=== PATIENT | female | born 1970 | race Caucasian/White ===

== ENCOUNTER 2019-11-09 08:21 | Outpatient (RCR) | payer OTHER, SELFPAY | END 2020-03-20 08:31 | disposition other institution (70) | LOC: HO.PTWFD 08:21 | PROVIDERS: PCP Family Medicine; Visit Provider Orthopaedic Surgery Hand Surgery | DX: M79.671 Pain in right foot (principal) | CPT/HCPCS: 97035; 97110; 97140 ==

== ENCOUNTER 2019-11-21 11:25 | Outpatient (REF) | payer OTHER, SELFPAY ==
[2019-11-21 14:13] LABS: Syphilis Screen Nonreactive (Nonreactive)
[2019-11-21 14:18] LABS: Alanine Aminotransferase 17 U/L (0-31); Albumin Level 4.5 g/dL (3.5-5.0); Alkaline Phosphatase 57 U/L (39-117); Anion Gap 12 (12-20); Aspartate Amino Transferase 14 U/L (5-31); Bilirubin Total 0.5 mg/dL (0.0-1.0); Blood Urea Nitrogen 14 mg/dL (9-16); Carbon Dioxide 29 mmol/L (22-29); Chloride 105 mmol/L (96-108); Cholesterol 147 mg/dL; Estimated Glomerular Filt Rate > 60; Glucose Fasting 91 mg/dL (60-99); HDL Cholesterol 49 mg/dL; LDL Cholesterol Calculated 76 mg/dl; Potassium 4.8 mmol/l (3.3-5.1); Sodium 141 mmol/L (135-145); Total Protein 7.6 g/dL (6.5-8.0); Triglycerides 112 mg/dL
[2019-11-21 14:40] LABS: TSH reflex Free T4 0.01 mIU/mL (0.32-4.0)
[2019-11-21 15:12] LABS: Free T4 (Free Thyroxine) 1.77 ng/dL (0.71-1.85)
[2019-11-21 16:04] LABS: CT PCR NOT DETECTED (Not Detect.); NG PCR NOT DETECTED (Not Detect.)
[2019-11-23 08:38] LABS: HIV AB/AG Nonreactive (Nonreactive); HIV Num 1 0.08 S/CO (0.00-0.99)
== END 2019-11-21 11:26 | disposition home or self-care (01) ==
LOC: HO.WFDLDS 11:25
PROVIDERS: PCP Family Medicine; Visit Provider Family Medicine
DX: Z00.00 Encounter for general adult medical examination without abnormal findings (principal); Z11.4 Encounter for screening for human immunodeficiency virus [HIV]; Z11.3 Encounter for screening for infections with a predominantly sexual mode of transmission; E03.9 Hypothyroidism, unspecified; F41.9 Anxiety disorder, unspecified; K21.9 Gastro-esophageal reflux disease without esophagitis
CPT/HCPCS: 80053; 80061; 84439; 84443; 86780; 87389; 87491; 87591

== ENCOUNTER 2019-11-28 10:51 | Outpatient (REF) | payer OTHER, SELFPAY | END 2019-11-28 10:52 | disposition home or self-care (01) | LOC: HO.LNP 10:51 | PROVIDERS: Visit Provider Hospitalist | DX: Z20.828 Contact with and (suspected) exposure to other viral communicable diseases (principal) | CPT/HCPCS: 87635 ==

== ENCOUNTER 2019-11-30 11:36 | Outpatient (REF) | payer OTHER, SELFPAY ==
[2019-11-30 11:56] LABS: COVID-19 Test Negative (Negative)
== END 2019-11-30 11:37 | disposition home or self-care (01) ==
LOC: HO.LAB 11:36
PROVIDERS: PCP Family Medicine; Visit Provider Internal Medicine
DX: Z20.828 Contact with and (suspected) exposure to other viral communicable diseases (principal)
CPT/HCPCS: 87635

== ENCOUNTER 2020-01-14 12:06 | Outpatient (REF) | payer OTHER, SELFPAY ==
--- NOTE | 2020-01-14 | MM_ITS ---
EXAMINATION: MM SCREENING DIGITAL BREAST TOMOSYNTHESIS, BILATERAL CLINICAL INFORMATION: Screening. Asymptomatic. The lifetime risk of breast cancer based on the Tyrer-Cuzick Model is 6.7%. COMPARISON: Mammography: September 30, 2017 and studies dating back to October 27, 2010 TECHNIQUE: Digital breast tomosynthesis is performed in both the craniocaudal and mediolateral oblique views along with computer-aided detection (CAD). Synthesized 2D images are generated from the tomosynthesis. FINDINGS: The breasts are extremely dense, which lowers the sensitivity of mammography (ACR BI-RADS breast composition Category d). There are no significant masses, abnormal calcifications, or other abnormalities. MM/MM tomosynthesis screening BI IMPRESSION: There are no significant changes from prior study. ASSESSMENT: BI-RADS 1: Negative RECOMMENDATION: Routine annual mammography screening. This patient's information was entered into a reminder system with a target due date for their next mammogram.
== END 2020-01-14 12:07 | disposition home or self-care (01) ==
LOC: HO.MAMMO 12:06
PROVIDERS: PCP Family Medicine; Visit Provider Family Medicine
DX: Z12.31 Encounter for screening mammogram for malignant neoplasm of breast (principal)
CPT/HCPCS: 77063; 77067

== ENCOUNTER 2020-02-18 16:54 | Outpatient (REF) | payer OTHER, SELFPAY | END 2020-02-18 16:55 | disposition home or self-care (01) | LOC: HO.EMPCOV 16:54 | PROVIDERS: Visit Provider Internal Medicine | DX: Z13.89 Encounter for screening for other disorder (principal) ==

== ENCOUNTER 2020-02-25 09:42 | Outpatient (REF) | payer OTHER, SELFPAY ==
[2020-02-25 10:49] LABS: MANUAL DIFF FLAG NO
[2020-02-25 10:52] LABS: Basophils Percent Auto 0.5 % (0-2); Eosinophils Absolute Auto 0.2 X10*3/uL (0.0-0.4); Eosinophils Percent Auto 2.7 % (0-4); Hematocrit 42.4 % (37-47); Hemoglobin 13.6 g/dl (12.0-16.0); Imm Gran Abs Auto 0.02 X10*3/uL (0.00-0.03); Imm Gran Pct Auto 0.3 % (0.0-0.4); Lymphocytes Percent Auto 31.2 % (20-40); Mean Corpuscular HGB Conc 32.1 g/dl (31.0-35.0); Mean Corpuscular Hemoglobin 30.8 pg (27.0-33.0); Mean Corpuscular Volume 96.1 fL (80-98); Mean Platelet Volume 9.3 fL (9.4-12.3); Monocytes Absolute Auto 0.4 X10*3/uL (0.1-1.2); Monocytes Percent Auto 6.7 % (2-11); Neutrophils Absolute Auto 3.7 X10*3/uL (2.0-8.3); Neutrophils Percent Auto 58.6 % (45-73); Platelet Count 371 X10*3/uL (160-400); Red Blood Count 4.41 X10*6/uL (4.20-5.50); Red Cell Distribution Width 12.8 % (11.0-16.0); White Blood Count 6.3 X10*3/uL (4.8-10.8)
[2020-02-25 11:20] LABS: Alanine Aminotransferase 14 U/L (0-31); Albumin Level 4.3 g/dL (3.5-5.0); Alkaline Phosphatase 52 U/L (39-117); Anion Gap 13 (12-20); Aspartate Amino Transferase 12 U/L (5-31); Bilirubin Total < 0.2 mg/dL (0.0-1.0); Blood Urea Nitrogen 15 mg/dL (9-16); Calcium 8.1 mg/dL (8.4-10.2); Carbon Dioxide 27 mmol/L (22-29); Chloride 105 mmol/L (96-108); Estimated Glomerular Filt Rate > 60; Glucose Random 94 mg/dL (60-115); Potassium 4.5 mmol/l (3.3-5.1); Sodium 140 mmol/L (135-145); Total Protein 7.4 g/dL (6.5-8.0); Uric Acid 4.5 mg/dL (2.4-5.7)
[2020-02-25 11:40] LABS: Free T4 (Free Thyroxine) 1.28 ng/dL (0.71-1.85); Thyroid Stimulating Hormone 0.05 uIU/mL (0.32-4.0)
[2020-02-25 11:45] LABS: Erythrocyte Sedimentation Rate 7 MM/HR (0-20)
[2020-02-29 07:07] LABS: Thyroglobulin Antibody <1 IU/mL (<=1); Thyroglobulin Level 4.2 ng/mL
== END 2020-02-25 09:43 | disposition home or self-care (01) ==
LOC: HO.WFDLDS 09:42
PROVIDERS: Visit Provider Family Medicine
DX: C73 Malignant neoplasm of thyroid gland (principal); M25.474 Effusion, right foot
CPT/HCPCS: 36415; 80053; 84432; 84439; 84443; 84550; 85025; 85652; 86800

== ENCOUNTER 2020-03-01 08:47 | Outpatient (REF) | payer OTHER, SELFPAY ==
[2020-03-01 09:12] LABS: COVID-19 Test Negative (Negative)
== END 2020-03-01 08:48 | disposition home or self-care (01) ==
LOC: HO.EMPCOV 08:47
PROVIDERS: Visit Provider Internal Medicine
DX: Z20.822 Contact with and (suspected) exposure to COVID-19 (principal)
CPT/HCPCS: 36415; 87635; C9803

== ENCOUNTER 2020-03-06 11:12 | Outpatient (REF) | payer OTHER, SELFPAY ==
[2020-03-06 11:28] LABS: COVID-19 Test Negative (Negative)
== END 2020-03-06 11:13 | disposition home or self-care (01) ==
LOC: HO.EMPCOV 11:12
PROVIDERS: Visit Provider Internal Medicine
DX: Z20.822 Contact with and (suspected) exposure to COVID-19 (principal)
CPT/HCPCS: 36415; 87635; C9803

== ENCOUNTER 2020-11-03 18:25 | Outpatient (REF) | payer OTHER, SELFPAY | END 2020-11-03 18:26 | disposition home or self-care (01) | LOC: HO.LNP 18:25 | PROVIDERS: Visit Provider Family Medicine | DX: Z20.822 Contact with and (suspected) exposure to COVID-19 (principal); B34.9 Viral infection, unspecified | CPT/HCPCS: U0003; U0005 ==

== ENCOUNTER 2021-05-01 09:03 | Outpatient (REF) | payer OTHER, SELFPAY ==
--- NOTE | ~2021-05-01 | MM_ITS ---
EXAMINATION: MM SCREENING DIGITAL BREAST TOMOSYNTHESIS, BILATERAL CLINICAL INFORMATION: Screening. Asymptomatic. The lifetime risk of breast cancer based on the Tyrer-Cuzick Model is 7%. COMPARISON: Mammography: 01/14/2020, 09/30/2017, 09/21/2017 TECHNIQUE: Digital breast tomosynthesis is performed in both the craniocaudal and mediolateral oblique views along with computer-aided detection (CAD). Synthesized 2D images are generated from the tomosynthesis. FINDINGS: The breasts are heterogeneously dense, which may obscure small masses (ACR BI-RADS breast composition Category c). There are no significant masses, abnormal calcifications, or other abnormalities. Parenchymal pattern is similar to prior studies. There is no developing density or architectural abnormality. The axilla and skin contours are unremarkable. No significant changes. MM/MM tomosynthesis screening BI IMPRESSION: No mammographic evidence of malignancy. ASSESSMENT: BI-RADS 1: Negative RECOMMENDATION: Routine annual mammography screening. This patient's information was entered into a reminder system with a target due date for their next mammogram.
== END 2021-05-01 09:04 | disposition home or self-care (01) ==
LOC: HO.MAMMO 09:03
PROVIDERS: PCP Family Medicine; Visit Provider Family Medicine
DX: Z12.31 Encounter for screening mammogram for malignant neoplasm of breast (principal)
CPT/HCPCS: 77063; 77067

== ENCOUNTER 2021-06-05 08:46 | Outpatient (REF) | payer OTHER, SELFPAY ==
[2021-06-05 11:34] LABS: MANUAL DIFF FLAG NO
[2021-06-05 11:41] LABS: Basophils Absolute Auto 0.1 X10*3/uL (0.0-0.2); Basophils Percent Auto 0.7 % (0-2); Eosinophils Absolute Auto 0.3 X10*3/uL (0.0-0.4); Eosinophils Percent Auto 3.3 % (0-4); Hematocrit 43.7 % (37.0-47.0); Imm Gran Abs Auto 0.02 X10*3/uL (0.00-0.03); Imm Gran Pct Auto 0.3 % (0.0-0.4); Lymphocytes Absolute Auto 2.5 X10*3/uL (1.2-4.9); Lymphocytes Percent Auto 32.5 % (20-40); Mean Corpuscular Volume 96.9 fL (80.0-98.0); Mean Platelet Volume 9.5 fL (9.4-12.3); Monocytes Absolute Auto 0.5 X10*3/uL (0.1-1.2); Monocytes Percent Auto 6.7 % (2-11); Neutrophils Absolute Auto 4.3 x10*3/uL (2.0-8.3); Neutrophils Percent Auto 56.5 % (45-73); Platelet Count 449 X10*3/uL (160-400); Red Blood Count 4.51 X10*6/uL (4.20-5.50); White Blood Count 7.6 X10*3/uL (4.8-10.8)
[2021-06-05 11:50] LABS: Alanine Aminotransferase 48 U/L (0-31); Albumin Level 4.3 g/dL (3.5-5.0); Alkaline Phosphatase 61 U/L (39-117); Anion Gap 12 (12-20); Aspartate Amino Transferase 27 U/L (5-31); Bilirubin Total 0.3 mg/dL (0.0-1.0); Blood Urea Nitrogen 16 mg/dL (9-16); Calcium 9.3 mg/dL (8.4-10.2); Carbon Dioxide 27 mmol/L (22-29); Chloride 104 mmol/L (96-108); Cholesterol 173 mg/dL; Estimated Glomerular Filt Rate > 60; Glucose Fasting 99 mg/dL (60-99); HDL Cholesterol 55 mg/dL; LDL Cholesterol Calculated 88 mg/dl; Potassium 4.8 mmol/L (3.3-5.1); Sodium 138 mmol/L (135-145); Total Protein 7.8 g/dL (6.5-8.0); Triglycerides 152 mg/dL
[2021-06-05 12:15] LABS: Free T4 (Free Thyroxine) 1.24 ng/dL (0.71-1.85); Thyroid Stimulating Hormone 0.23 uIU/mL (0.32-4.0)
[2021-06-06 17:46] LABS: Triiodothyronine T3 Total 130 ng/dL (76-181)
== END 2021-06-05 08:47 | disposition home or self-care (01) ==
LOC: HO.WFDLDS 08:46
PROVIDERS: Visit Provider Family Medicine
DX: Z00.00 Encounter for general adult medical examination without abnormal findings (principal); E03.9 Hypothyroidism, unspecified
CPT/HCPCS: 36415; 80053; 80061; 84439; 84443; 84480; 85025

== ENCOUNTER 2021-10-06 09:17 | Outpatient (REF) | payer OTHER, SELFPAY ==
[2021-10-06 12:34] LABS: Thyroid Stimulating Hormone 0.24 uIU/mL (0.32-4.0)
== END 2021-10-06 09:18 | disposition home or self-care (01) ==
LOC: HO.WFDLDS 09:17
PROVIDERS: Visit Provider Physician Assistant
DX: Z01.818 Encounter for other preprocedural examination (principal); K59.09 Other constipation; K21.9 Gastro-esophageal reflux disease without esophagitis; Z83.71 Family history of colonic polyps
CPT/HCPCS: 36415; 84443; 99202

== ENCOUNTER 2021-10-13 09:44 | Outpatient (REF) | payer OTHER, SELFPAY ==
[2021-10-13 11:23] LABS: Free T4 (Free Thyroxine) 1.42 ng/dL (0.71-1.85); Thyroid Stimulating Hormone 0.37 uIU/mL (0.32-4.0)
[2021-10-14 14:17] LABS: Adrenocorticotropic Hormone <5 pg/mL (6-50)
[2021-10-16 05:36] LABS: Thyroglobulin Antibody <1 IU/mL (<=1); Thyroglobulin Level 3.6 ng/mL
[2021-10-21 10:57] LABS: Dexamethasone 251 ng/dL
== END 2021-10-13 09:45 | disposition home or self-care (01) ==
LOC: HO.WFDLDS 09:44
PROVIDERS: Visit Provider Internal Medicine
DX: D35.00 Benign neoplasm of unspecified adrenal gland (principal)
CPT/HCPCS: 36415; 80299; 82024; 82533; 84432; 84439; 84443; 86800

== ENCOUNTER → 2021-11-26 14:57 | Outpatient (BNVA) | payer OTHER, SELFPAY | PROVIDERS: PCP Family Medicine; Visit Provider Surgery Vascular Surgery | DX: I83.12 Varicose veins of left lower extremity with inflammation (principal) | CPT/HCPCS: 99202 ==

== ENCOUNTER → 2021-12-07 09:40 | Outpatient (BNVA) | payer OTHER, SELFPAY | PROVIDERS: PCP Family Medicine; Visit Provider Internal Medicine Pulmonary Disease | DX: R91.8 Other nonspecific abnormal finding of lung field (principal) | CPT/HCPCS: 99202 ==

== ENCOUNTER 2021-12-18 08:08 | Outpatient (REF) | payer OTHER, SELFPAY | END 2021-12-18 08:09 | disposition home or self-care (01) | LOC: HO.WFDLDS 08:08 | PROVIDERS: Visit Provider Family Medicine | DX: Z13.89 Encounter for screening for other disorder (principal) ==

== ENCOUNTER 2022-01-14 13:09 | Outpatient (REF) | payer OTHER, SELFPAY ==
[2022-01-14 17:35] LABS: Cortisol Random 8.1 ug/dL; Free T4 (Free Thyroxine) 1.31 ng/dL (0.71-1.85); Thyroid Stimulating Hormone 0.02 uIU/mL (0.32-4.0)
[2022-01-20 06:54] LABS: Thyroglobulin Antibody <1 IU/mL (<=1); Thyroglobulin Level 2.6 ng/mL
== END 2022-01-14 13:10 | disposition home or self-care (01) ==
LOC: HO.LAB 13:09
PROVIDERS: Absent Provider Family Medicine; PCP Family Medicine; Visit Provider Internal Medicine
DX: D35.00 Benign neoplasm of unspecified adrenal gland (principal)
CPT/HCPCS: 36415; 82533; 84432; 84439; 84443; 86800

== ENCOUNTER → 2022-07-07 09:08 | Outpatient (BNVA) | payer OTHER, SELFPAY | PROVIDERS: PCP Family Medicine; Visit Provider Internal Medicine Pulmonary Disease | DX: R91.8 Other nonspecific abnormal finding of lung field (principal) | CPT/HCPCS: 99212 ==

== ENCOUNTER 2022-08-04 07:40 | Outpatient (REF) | payer OTHER, SELFPAY ==
--- NOTE | ~2022-08-04 | CT_ITS ---
EXAMINATION: CT CHEST WITHOUT CONTRAST CLINICAL INFORMATION: Nonspecific abnormal finding of the lungs COMPARISON: No recent imaging. Chest radiograph from 11/02/2017. TECHNIQUE: Multidetector volumetric CT imaging of the chest was done. Axial MIP volume rendering provided. Sagittal and coronal reformatted images were obtained. This CT examination was performed using dose optimization techniques as appropriate, variously including the following: *Automated exposure control *Adjustment of mA and/or kV according to patient size (this includes techniques or standardized protocols for targeted exams where dose is matched to indication/reason for exam; i.e. 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 There is no dense consolidation. Pleural thickening at both lung apices. There is a subpleural anterior right upper lobe 0.3 cm nodule on series 5 image 116. Fissural lymph node with triangular shape along the right minor fissure. Additional pleural-based posterior left lower lobe 0.5 cm nodule on series 5 image 357. MEDIASTINUM: Normal heart size. No pericardial effusion. No mediastinal lymphadenopathy. Surgical clips at the thyroid bed. CORONARY ARTERY CALCIFICATION: None visualized on this study. PLEURA: There is no pleural effusion. No pneumothorax. AXILLA: No lymphadenopathy. UPPER ABDOMEN: No acute abnormality. Cholecystectomy. Left adrenal gland nodule consistent with a lipid rich adenoma. No follow-up recommended. This measures 1.7 cm. OSSEOUS STRUCTURES: No acute or suspicious osseous abnormality. Mild degenerative change throughout the spine. CT/CT chest wo IV con IMPRESSION: 1. No acute pulmonary finding. 2. Small pulmonary nodules are noted measuring up to 0.5 cm. According to the UPDATED 2017 Fleischner Society recommendations, the advised follow-up imaging for solid nodules < 6 mm is: LOW RISK PATIENT: No routine follow-up. HIGH RISK PATIENT: Optional CT at 12 months.
== END 2022-08-04 07:41 | disposition home or self-care (01) ==
LOC: HO.CT 07:40
PROVIDERS: PCP Family Medicine; Visit Provider Internal Medicine Pulmonary Disease
DX: R91.8 Other nonspecific abnormal finding of lung field (principal)
CPT/HCPCS: 71250

== ENCOUNTER 2022-10-05 07:26 | Outpatient (AMB) | payer OTHER, SELFPAY ==
--- NOTE | 2022-10-05 07:28 | A.OFFVIS_ITS ---
Intake Vital Signs 10/05/22 07:35 Height 5 ft 3 in Weight 168 lb BMI 29.8 BP 115/81 Blood Pressure Location Lt brachial Position Sitting Pulse 72 Intake Visit Reasons: Colonoscopy screening Intake Note: Patient new consult for 1st Pre Colonoscopy screening. Patient cc: acid reflex with burning sensation and constipation. Denies any other GI issues.. 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 Accompanied by: Self / Same As Patient Allergies acetaminophen [From Percocet] Adverse Reaction (Mild, Verified 10/05/22 07:27) Stomach Upset codeine Adverse Reaction (Mild, Verified 10/05/22 07:27) Stomach Upset oxycodone [From Percocet] Adverse Reaction (Mild, Verified 10/05/22 07:27) Stomach Upset Medication List - Last Reconciled 10/05/22 by Laina Verde PA-C cetirizine 10 mg PO DAILY estradiol 0.5 mg PO DAILY fluticasone propionate 50 mcg/actuation 2 sprays intranasal DAILY ibuprofen 800 mg PO Q8H levonorgestrel (Mirena) intrauterine levothyroxine mcg PO minoxidil 2% (Hair Regrowth Treatment) 1 mL topical BID omeprazole 20 mg PO DAILY tizanidine 4 mg (2 x 2 mg) PO BEDTIME PRN HPI HPI Comments History of Present Illness Details A 51 y/o F- referred for index screening colonoscopy presents with acid reflux despite PPI b.i.d.. She has made dietary modifications as well and experiences water brash. She is well intermittent constipation, tries to maintain high-fiber diet. 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 Had long discussion, reassurance offered, need support. Appetite is good, no nausea, vomiting hematemesis, hematochezia fever chills Depressed due to home situation, certainly understandable-no homicidal suicidal ideation, PFSH Surgical History FH: thyroid cancer H/O left inguinal hernia repair Hx of cholecystectomy Family History Father HTN (hypertension) Diabetes Mother Diabetes Hypothyroidism Brother No problems noted. Sister No problems noted. Son No problems noted. Son No problems noted. Daughter No problems noted. Daughter No problems noted. Daughter No problems noted. Social History Household Members: Family Household Members Other:: , 6 children Alcohol intake: never Patient Tobacco Use Status: Never used Tobacco e-Cigarette/Vaping Use: Never Used Second Hand Smoke Exposure: No service: No Current occupational status: employed Current occupation: [employer] in October Current occupational exposures/hazards: No Cognitive needs: No Hearing needs: No Vision needs: No Review of Systems Const All systems reviewed & are unremarkable except as noted in HPI and below Card Denies chest pain and Denies dyspnea Resp Denies dyspnea GI Denies abdominal pain, Denies change in bowel habits, Reports constipation, Denies nausea and Denies vomiting Psych Reports abnormal sleep pattern, Reports anxiety, Reports depression, Denies homicidal ideation and Denies suicidal ideation Physical Exam Vital Signs: Last Vital Signs Pulse 72 10/05/22 07:35 BP 115/81 10/05/22 07:35 BMI result Body Mass Index 29.8 Const General: cooperative, healthy appearing, comfortable and well groomed Orientation/consciousness: patient oriented x3 Limitations: no limitations Resp Effort & Inspection: normal respiratory effort and able to speak in complete se ntences Auscultation: clear to auscultation bilaterally, no rales, no rhonchi and no wheezes Cardio Rate: regular rate Rhythm: regular rhythm Heart sounds: S1 normal heart sound present and S2 normal heart sound present GI Palpation (GI): Soft to palpation and nontender Auscultation: normal bowel sounds Skin General skin exam: no rashes or lesions noted Neuro General: patient oriented x3 Extrem General: Yes full ROM Psych Appearance: grossly normal and well kempt Mental Status: mental status grossly normal Speech and movement: Normal speech and movement present and Clear speech present Affect: Sad affect present Attitude: cooperative Thought process: Normal thought process present Thought content: Normal thought content present Insight: Fair insight present (Psych) Assessment & Plan Assessment & Plan (1) GERD (gastroesophageal reflux disease): Comment: Switch omeprazole to pantoprazole 40 mg daily Code(s): K21.9 - Gastro-esophageal reflux disease without esophagitis Plan: Pantoprazole 40 mg daily EGD r/o pud, nonulcer dyspepsia, esophagitis (2) Screening for colon cancer: Comment: Very stressed -home situation-support reassurance offered very receptive Code(s): Z12.11 - Encounter for screening for malignant neoplasm of colon Plan: Index screening colonoscopy (3) Chronic constipation: Code(s): K59.09 - Other constipation Plan: Maintain high-fiber diet Consistent bowel regimen Plan EGD-colonoscopy MiraLax Gatorade split prep Orders: Orders EGD/[place] Combo - GI Use Only Today Medications: New bisacodyl (Dulcolax (bisacodyl)) Take 4 tablets by mouth at 12:00pm the day before your procedure. 20 mg (4 x 5 mg) PO ONCE 1 day 4 tabs 0RF colonoscopy prep Z12.11 - Encounter for screening for malignant neoplasm of colon polyethylene glycol 3350 (Miralax) Take as directed by mouth the day before your procedure. 238 grams PO ONCE 1 day PRN 238 grams 0RF laxative effect pantoprazole 40 mg PO DAILY 30 days PRN 30 tabs 11RF reflux docusate sodium (Colace) 200 mg (2 x 100 mg) PO BEDTIME 60 caps 5RF methylcellulose (laxative) (Citrucel) 500 mg PO TID 30 days PRN 90 tabs 5RF constipation polyethylene glycol 3350 (Miralax) 17 grams PO DAILY PRN 510 grams 6RF constipation Patient Instructions: A very pleasant 51-year-old female referred for index screening colonoscopy p resents with persistent acid reflux EGD colonoscopy, procedures discussed, need for escorted due to anesthesia as well as MiraLax Gatorade split prep, literature given Maintain high-fiber diet and consistent bowel regimen for constipation Will switch omeprazole to pantoprazole 40 mg daily, reflux precautions avoid culprits Encouraged to call with questions or concerns Appreciate the opportunity assist in the care this pleasant patient Coding Level of Care Code New Pt Level 4 (74944) Diagnoses GERD (gastroesophageal reflux disease) K21.9 Screening for colon cancer Z12.11 Chronic constipation K59.09 Time Spent (min) 45
[2022-10-05 07:35] VITALS: BP 115/81; PULSE 72; BMI 29.8
== END 2022-10-05 10:33 | disposition home or self-care (01) ==
LOC: HO.HGIW 07:26
PROVIDERS: PCP Family Medicine; Visit Provider Physician Assistant
DX: Z01.818 Encounter for other preprocedural examination (principal); Z12.11 Encounter for screening for malignant neoplasm of colon; K21.9 Gastro-esophageal reflux disease without esophagitis; K59.09 Other constipation
CPT/HCPCS: 99212

== ENCOUNTER → 2022-10-05 07:26 | Outpatient (BNVA) | payer OTHER, SELFPAY | PROVIDERS: PCP Family Medicine; Visit Provider Physician Assistant | DX: Z01.818 Encounter for other preprocedural examination (principal); K21.9 Gastro-esophageal reflux disease without esophagitis; K59.09 Other constipation | CPT/HCPCS: 99212 ==

== ENCOUNTER 2022-12-10 10:09 | Outpatient (REF) | payer OTHER, SELFPAY ==
[2022-12-10 11:31] LABS: Appearance Urine Cloudy; Color Urine Yellow; Glucose Urine UA Negative (Negative); Leukocyte Esterase Urine Trace (Negative); Nitrite Urine Negative (Negative); UMIC TRIGGER UA YES; Urine Blood Negative (Negative); Urine Ketones Negative (Negative); Urine Protein Negative (Neg-Trace)
[2022-12-10 11:36] LABS: Bacteria Urine 3+ (None Seen); Hyaline Casts Urine 0-2 /LPF (0-2); RBC Urine 0-2 /HPF (0-2)
[2022-12-10 12:32] LABS: Alanine Aminotransferase 23 U/L (0-31); Albumin Level 4.4 g/dL (3.5-5.0); Alkaline Phosphatase 57 U/L (39-117); Anion Gap 12 (12-20); Aspartate Amino Transferase 15 U/L (5-31); Bilirubin Total 0.3 mg/dL (0.0-1.0); Blood Urea Nitrogen 14 mg/dL (9-16); Calcium 9.8 mg/dL (8.4-10.2); Carbon Dioxide 26 mmol/L (22-29); Chloride 105 mmol/L (96-108); Cholesterol 172 mg/dL (<200); Estimated Glomerular Filt Rate > 60; Free T4 (Free Thyroxine) 1.06 ng/dL (0.71-1.85); Glucose Fasting 88 mg/dL (60-99); HDL Cholesterol 55 mg/dL (>40); LDL Cholesterol Calculated 99 mg/dL (<100); Potassium 4.1 mmol/L (3.3-5.1); Sodium 139 mmol/L (135-145); Thyroid Stimulating Hormone 0.34 uIU/mL (0.32-4.0); Total Protein 8.1 g/dL (6.5-8.0); Triglycerides 93 mg/dL (<150)
[2022-12-10 12:37] LABS: Creatinine Urine 122.87 mg/dL; Microalbum/Creatinine Ratio Ur 27.6 ug/mg cr (<30)
[2022-12-11 09:13] LABS: Triiodothyronine T3 Total 123 ng/dL (76-181)
== END 2022-12-10 10:10 | disposition home or self-care (01) ==
LOC: HO.WFDLDS 10:09
PROVIDERS: Visit Provider Family Medicine
DX: Z00.00 Encounter for general adult medical examination without abnormal findings (principal); E03.9 Hypothyroidism, unspecified; I10 Essential (primary) hypertension
CPT/HCPCS: 36415; 80053; 80061; 81001; 82043; 82570; 84439; 84443; 84480

== ENCOUNTER 2023-01-12 15:52 | Outpatient (AMB) | payer OTHER, SELFPAY ==
[2023-01-12 15:58] VITALS: BP 108/64; PULSE 84; RESP 13; O2SAT 98; BMI 30.8
--- NOTE | 2023-01-12 15:58 | MHC.PC.OV ---
Vital Signs 01/12/23 15:58 Height 5 ft 3 in Weight 174 lb 2 oz BMI 30.8 BP 108/64 Blood Pressure Location Lt brachial Position Sitting Respiration 13 Pulse 84 Pulse Source Pulse Oximeter Pulse Oximetry (%) 98 Oxygen Delivery Method Room Air Intake Visit Reasons: CPE+ NEEDS PHQ9/THRIVE, Paperwork Intake Note: Patient is here for her physical and she is requesting paperwork for [facility]. Patient needs a refills on her medications. Well Services Operator Required: No Accompanied by: Self / Same As Patient Allergies acetaminophen [From Percocet] Adverse Reaction (Mild, Verified 01/12/23 16:05) Stomach Upset codeine Adverse Reaction (Mild, Verified 01/12/23 16:05) Stomach Upset oxycodone [From Percocet] Adverse Reaction (Mild, Verified 01/12/23 16:05) Stomach Upset Medication List - Last Reconciled 01/12/23 by Kyler Prescott MD bisacodyl (Dulcolax (bisacodyl)) 20 mg (4 x 5 mg) PO ONCE 1 day cetirizine 10 mg PO DAILY docusate sodium (Colace) 200 mg (2 x 100 mg) PO BEDTIME estradiol 0.5 mg PO DAILY fluticasone propionate 50 mcg/actuation 2 sprays intranasal DAILY ibuprofen 800 mg PO Q8H levonorgestrel (Mirena) intrauterine levothyroxine mcg PO methylcellulose (laxative) (Citrucel) 500 mg PO TID PRN 30 days minoxidil 2% (Hair Regrowth Treatment) 1 mL topical BID omeprazole 40 mg PO DAILY polyethylene glycol 3350 (Miralax) 238 grams PO ONCE PRN 1 day polyethylene glycol 3350 (Miralax) 17 grams PO DAILY PRN tizanidine 4 mg (2 x 2 mg) PO BEDTIME PRN Tobacco use date assessed: 01/12/23 Dental Screening Dental Screen Date: 01/12/23 Did you have a dental visit in the last 12 months?: Yes Did you have a dental problem in the last 6 months where you did not have access to dental care?: No Was dental information given to patient?: Patient has dentist HPI CPE+ NEEDS PHQ9/THRIVE, Paperwork HPI Details 52 y/o female presents for an extended exam with f/u labs and health maintenance. Labs were drawn 12/10/22. Reviewed labs with pt. Triglycerides 93. TC 172. LDL 99. HDL 55. 3+ urine bacteria seen. She denies any urinary symptoms. Thyroid levels are fine. She reports hearing changes. Pt also reports memory changes and would like a referral to neuropsychiatry. [facility] Surgical History Hx of cholecystectomy FH: thyroid cancer H/O left inguinal hernia repair Family History Father HTN (hypertension) Diabetes Mother Diabetes Hypothyroidism Brother No problems noted. Sister No problems noted. Son No problems noted. Son No problems noted. Daughter No problems noted. Daughter No problems noted. Daughter No problems noted. Social History Household Members: Family Household Members Other:: , 6 children Housing: Apartment Alcohol intake: never Patient Tobacco Use Status: Never used Tobacco e-Cigarette/Vaping Use: Never Used Second Hand Smoke Exposure: No service: No Current occupational status: employed Current occupation: [employer]- [employer] in October Current occupational exposures/hazards: No Cognitive needs: No Hearing needs: No Vision needs: No Questionnaire PHQ-9 Over the last 2 weeks, how often have you been bothered by any of the following problems? 1. Little interest or pleasure in doing things: not at all 2. Feeling down, depressed, or hopeless: not at all 3. Trouble falling or staying asleep, or sleeping too much: not at all 4. Feeling tired or having little energy: not at all 5. Poor appetite or overeating: not at all 6. Feeling bad about yourself - or that you are a failure or have let yourself or your family down: not at all 7. Trouble concentrating on things, such as reading the newspaper or watching television: not at all 8. Moving or speaking so slowly that other people could have noticed. Or the opposite - being so fidgety or restless that you have been moving around a lot more than usual: not at all 9. Thoughts that you would be better off or of hurting yourself in some way: not at all Total score: 0 Depression Screening Interpretation: Negative Depression Screening Done: Yes 58073 - PHQ-9 Billing: Yes Source: Developed by Drs. Rufus Reyna, Luis Salgado and colleagues, with an educational molly from [employer]. Thrive Questionnaire Date Thrive assessed: 01/12/23 I am a: Patient What is your living situation today?: I have a steady place to live Within the past 12 months, did the food you bought not last and you didn't have the money to get more?: Never true Within the past 12 months, did you worry whether your food would run out before you got money to buy more?: Never true Do you have trouble paying for medicines?: No Do you have trouble getting transportation to medical appointments?: No Do you have trouble paying your heating and electricity bill?: No Do you have trouble taking care of your child, family member or friend?: No Do you have trouble with day-to-day activities such as bathing, preparing meals, shopping, managing finances, etc.?: No Are you currently unemployed and looking for a job?: No Are you interested in more education?: No Please select the resources that you would like help with: None Currently or been in a relationship where the following occur: no concerns reported AUDIT C Alcohol Use Questionnaire (AUDIT-C) 1. How often do you have a drink containing alcohol?: Never 3. How often do you have six or more drinks on one occasion?: Never Total Score: 0 MICKEY-7 AMB Questionnaire MICKEY-7 Date MICKEY - 7 assessed: 01/12/23 Feeling nervous, anxious, or on edge: 0 = Not at all Not being able to stop or control worryin = Not at all Worrying too much about different things: 0 = Not at all Trouble relaxin = Not at all Being so restless that it is hard to sit still: 0 = Not at all Becoming easily annoyed or irritable: 0 = Not at all Feeling afraid as if something awful might happen: 0 = Not at all Total MICKEY-7 score (0-4 normal; 5-9 mild; 10-14 moderate; 15-21 severe): 0 Source: Developed by Drs. Rufus Reyna, Luis Salgado and colleagues, with an educational molly from [employer]. MICKEY-7 Assessment Billing MICKEY-7 Assessment Tool: MICKEY-7 Assessment 87916 Review of Systems Const Denies chills, Denies fatigue, Denies fever(s), Denies headache(s) and Denies weakness Eyes Denies change in vision ENT Denies dizziness, Denies headache(s), Denies hearing loss, Denies nasal congestion, Denies sinus pain, Denies sinus pressure and Denies sore throat Card Denies chest pain, Denies lightheadedness, Denies dyspnea and Denies other (palpitations) Resp Denies cough, Denies dyspnea and Denies wheezing GI Denies abdominal pain, Denies melena, Denies hematochezia, Denies change in bowel habits, Denies dyspepsia and Denies nausea Denies hematuria and Denies dysuria Musc Denies abnormal gait, Denies myalgias, Denies arthralgias, Denies numbness and Denies tingling Skin/Breast Denies rash, Denies unusual bruising and Denies wounds Neuro Denies abnormal gait, Denies dizziness, Denies headache(s), Denies memory loss, Denies numbness, Denies Sensory deficit (Neuro), Denies tingling and Denies weakness Psych Denies anxiety, Denies depression and Denies memory loss Endo Denies cold intolerance, Denies fatigue, Denies heat intolerance, Denies polydipsia and Denies polyuria Heladio/Lymph Denies easy bleeding and Denies easy bruising Aller/Immun Denies wheezing Physical exam (Primary Care) Vital Signs: Last Vital Signs Pulse 84 01/12/23 15:58 Resp 13 01/12/23 15:58 BP 108/64 01/12/23 15:58 Pulse Ox 98 01/12/23 15:58 Oxygen Delivery Method Room Air 01/12/23 15:58 BMI result Body Mass Index 30.8 Tobacco/Smoking Status: Tobacco use Status Tobacco use date assessed 01/12/23 01/12/23 16:08 Patient Tobacco Use Status Never used Tobacco 01/12/23 16:08 e-Cigarette/Vaping Use Never Used 01/12/23 16:08 Depression Screening Interpretation: Negative Thrive Assessment: Date of Thrive Assessment Date Thrive assessed 01/12/23 01/12/23 16:10 Currently or been in a relationship where the following occur: no concerns reported Const General: no acute distress, well developed, alert and awake Nutritional Appearance: well nourished Orientation/consciousness: patient oriented x3 HENMO Head: Yes normocephalic and Yes atraumatic Ears: hearing grossly normal bilaterally and TM's normal bilaterally General nose exam: Normal external nose present and Normal nares present Mouth: Normal oral and palatal mucosa present and moist mucous membranes Teeth and gingiva: dentition normal Throat: Yes posterior oropharynx normal Eyes General: appearance normal, both eyes and all related structures Pupils: Equal, round and reactive pupils present and Pupil accommodation reflex normal EOM: EOMs intact bilaterally Neck Neck: Yes normal visual inspection, Yes no lymphadenopathy and Yes trachea midline Thyroid: Thyroid normal Carotids: no bruits Lymphatic: no lymphadenopathy noted Chest Chest palpation & inspection: normal inspection of the chest Resp Effort & Inspection: normal respiratory effort Auscultation: clear to auscultation bilaterally Cardio Rate: regular rate Rhythm: regular rhythm Heart sounds: S1 normal heart sound present, S2 normal heart sound present, no gallops, Murmur heart sound present (2/6 systolic murmur over the aortic region ) and no rubs Bruits: no abdominal aortic bruits and no carotid bruits GI Palpation (GI): No Abdominal aortic bruit present, Soft to palpation, nontender, No hepatosplenomegaly present and No Rebound tenderness present Auscultation: normal bowel sounds General: Yes no CVA tenderness Back/Spine/Pelvis Back: no CVA tenderness Cervical Spine: cervical ROM normal and No Cervical spine tenderness Thoracic/Lumbar Spine: thoraco-lumbar ROM normal, No pain with thoraco-lumbar ROM, No thoracic spinal tenderness and No lumbar spinal tenderness Skin Lesions: no lesions Rashes: no rashes Trauma: no lacerations or abrasions Wounds: no wounds Nails: normal Neuro General: patient oriented x3 Cranial nerves: Yes Equal, round and reactive pupils present Cognition (Neuro): normal cognition Gait exam (Neuro): Normal gait present Motor exam (neuro): 5/5 motor strength present throughout Sensory Exam: No Sensory deficit (Neuro) Deep tendon reflexes (DTR's): Right patellar reflex intensity grade: 2+ and Left patellar reflex intensity grade: 2+ Extrem General: Yes normal to inspection and No edema Psych Appearance: grossly normal Affect: normal affect Attitude: cooperative Thought process: Normal thought process present Assessment and Plan Assessment & Plan (1) Adult general medical exam: Code(s): Z00.00 - Encounter for general adult medical examination without abnormal findings Plan: 52-year-old?female?presents?for?complete?physical?exam (2) Screening for cervical cancer: Code(s): Z12.4 - Encounter for screening for malignant neoplasm of cervix Plan: Pap?smear?last?year?and?negative Follow-up?with?personal injury paralegal?as?recommended (3) Breast cancer screening by mammogram: Code(s): Z12.31 - Encounter for screening mammogram for malignant neoplasm of breast Plan: Due?for?mammogram?and?has?this?scheduled Order?is?in (4) Hypothyroidism: Code(s): E03.9 - Hypothyroidism, unspecified Plan: Thyroid?hormone?levels?are?within?normal?limits Follow-up?with?endocrinology?as?recommended (5) Change in hearing: Code(s): H91.90 - Unspecified hearing loss, unspecified ear Plan: Difficulty?with?word?discrimination?in?certain?situations Referred?to?audiology (6) GERD (gastroesophageal reflux disease): Comment: Switch omeprazole to pantoprazole 40 mg daily Code(s): K21.9 - Gastro-esophageal reflux disease without esophagitis Plan: Patient?was?having?problems?with?pantoprazole?so?I?have?switch?this?back?to?omeprazole?at?her?request. Follow-up?with?GI?as?recommended (7) Murmur: Code(s): R01.1 - Cardiac murmur, unspecified Plan: 2/6?systolic?murmur?over?aortic?region. Echocardiogram?ordered (8) Immunization counseling: Code(s): Z71.85 - Encounter for immunization safety counseling Plan: No?documentation?of?varicella Titers?are?ordered (9) Asymptomatic bacteriuria: Code(s): R82.71 - Bacteriuria Plan: Recheck?urinalysis (10) Screening for colon cancer: Comment: Very stressed -home situation-support reassurance offered very receptive Code(s): Z12.11 - Encounter for screening for malignant neoplasm of colon Plan: Followed?by?GI (11) Memory change: Code(s): R41.3 - Other amnesia Plan: Patient?was?concerned?that?her?thyroid?hormone?levels?might?be?affecting?memory?but?these?are?within?normal?limits. Continue?current?regimen?and?follow-up?with?Endocrine?for?any?concerns?regarding?thyroid?hormones Referred?to?neuropsych?for?evaluation Orders: Orders MM tomosynthesis screening BI Today Z12.31 - Encounter for screening mammogram for malignant neoplasm of breast UA and rflx microscopic Today R82.71 - Bacteriuria, Z00.00 - Encounter for general adult medical examination without abnormal findings Varicella IgG Antibody Today Z71.85 - Encounter for immunization safety counseling CA echo transthoracic complete Today R01.1 - Cardiac murmur, unspecified Referrals Audiology Referral H91.90 - Unspecified hearing loss, unspecified ear Neuropsychiatry Referral R41.3 - Other amnesia Medications: New acetic acid 2% apply to (cotton) wick; replace wick every 24 hours 3 drps otic (ear) left Q6H 7 days 15 mL 0RF Changed From omeprazole 40 mg PO DAILY To omeprazole 40 mg (2 x 20 mg) PO DAILY 30 days 60 caps 3RF Refilled ibuprofen 800 mg PO Q8H 90 tabs 3RF tizanidine 4 mg (2 x 2 mg) PO BEDTIME PRN 60 tabs 2RF for muscle spasm Coding Level of Care Code Est Pt Level 4 (34845) Est Pt Prev Care 40-64y(24261) Diagnoses Adult general medical exam Z00.00 Screening for cervical cancer Z12.4 Breast cancer screening by mammogram Z12.31 Hypothyroidism E03.9 Change in hearing H91.90 GERD (gastroesophageal reflux disease) K21.9 Murmur R01.1 Immunization counseling Z71.85 Asymptomatic bacteriuria R82.71 Screening for colon cancer Z12.11 Memory change R41.3 Additional Codes MICKEY-7 Assessment Billing - MICKEY-7 Assessment Tool: MICKEY-7 Assessment 26545 ([id number])
== END 2023-01-12 17:01 | disposition home or self-care (01) ==
PROVIDERS: PCP Family Medicine; Visit Provider Family Medicine
DX: Z00.00 Encounter for general adult medical examination without abnormal findings (principal); R01.1 Cardiac murmur, unspecified; E03.9 Hypothyroidism, unspecified; K21.9 Gastro-esophageal reflux disease without esophagitis; R82.71 Bacteriuria; R41.3 Other amnesia; H91.90 Unspecified hearing loss, unspecified ear; Z71.85 Encounter for immunization safety counseling; Z12.11 Encounter for screening for malignant neoplasm of colon
CPT/HCPCS: 99214; 99396

== ENCOUNTER 2023-01-13 15:15 | Outpatient (REF) | payer OTHER, SELFPAY ==
--- NOTE | ~2023-01-13 | MM_ITS ---
EXAMINATION: MM SCREENING DIGITAL BREAST TOMOSYNTHESIS, BILATERAL CLINICAL INFORMATION: Screening. Asymptomatic. COMPARISON: Mammography: 06/01/2021, 01/14/2020, 09/30/2017, 09/21/2017 TECHNIQUE: Digital breast tomosynthesis is performed in both the craniocaudal and mediolateral oblique views along with computer-aided detection (CAD). Synthesized 2D images are generated from the tomosynthesis. FINDINGS: The breasts are heterogeneously dense, which may obscure small masses (ACR BI-RADS breast composition Category c). There are 3 stable circumscribed isodense oval masses, one in the right breast, and 2 in the left breast, consistent with benign entities such as fibroadenomas or waxing/waning cysts. There are no suspicious masses, suspicious grouped calcifications, or areas of architectural distortion in either breast. The parenchymal pattern is stable from prior exams. No skin or axillary changes. MM/MM tomosynthesis screening BI IMPRESSION: No mammographic evidence of malignancy. Benign findings. ASSESSMENT: BI-RADS BI-RADS 2 - Benign Findings RECOMMENDATION: Routine annual mammography screening. 1 year F/U This examination should not preclude the clinical evaluation of a suspicious palpable abnormality. This patient's information was entered into a reminder system with a target due date for their next mammogram.
== END 2023-01-13 15:16 | disposition home or self-care (01) ==
LOC: HO.MAMMO 15:15
PROVIDERS: PCP Family Medicine; Visit Provider Family Medicine
DX: Z12.31 Encounter for screening mammogram for malignant neoplasm of breast (principal)
CPT/HCPCS: 77063; 77067

== ENCOUNTER → 2023-01-13 16:30 | Outpatient (BNV) | payer OTHER, SELFPAY | PROVIDERS: PCP Family Medicine; Visit Provider Radiology Diagnostic Radiology | DX: Z12.31 Encounter for screening mammogram for malignant neoplasm of breast (principal) | CPT/HCPCS: 77063; 77067 ==

== ENCOUNTER 2023-01-19 09:51 | Outpatient (REF) | payer OTHER, SELFPAY ==
[2023-01-19 11:05] LABS: Appearance Urine Clear; Color Urine Yellow; Glucose Urine UA Negative (Negative); Leukocyte Esterase Urine Negative (Negative); Nitrite Urine Negative (Negative); PH 6.5 (5.0-9.0); Specific Gravity - Urine 1.025 (1.005-1.025); Urine Blood Negative (Negative); Urine Ketones Negative (Negative); Urine Protein Negative (Neg-Trace)
== END 2023-01-19 09:52 | disposition home or self-care (01) ==
LOC: HO.LAB 09:51
PROVIDERS: PCP Family Medicine; Visit Provider Family Medicine
DX: Z00.00 Encounter for general adult medical examination without abnormal findings (principal); R82.71 Bacteriuria; Z71.85 Encounter for immunization safety counseling
CPT/HCPCS: 36415; 81003; 86787

== ENCOUNTER → 2023-06-21 08:52 | Outpatient (REF) | payer OTHER, SELFPAY ==
--- NOTE | 2023-06-21 08:56 | CA_ITS ---
Transthoracic Echocardiogram Patient (Last, First, Middle): Aaliyah Blackburn, Gender: Female Date of : 1970 Age: 52 Procedure Date: 06/21/2023 Procedure Type: Transthoracic Echocardiogram Location: OP Height: 157.48 cm Weight: 75.75 kg BSA: 1.77 m2 Heart Rate: bpm BP: 110 / 70 mmHg Evp Strategy: TO Referring MD: Kyler Prescott MD Needleworker: Tonio Blackburn MD Symptoms: R01.1 - Cardiac murmur, unspecified Study Quality: Adequate ECG Rhythm: Sinus Conclusions: - Essentially normal study with trace aortic regurgitation Findings Left Ventricle Normal left ventricular size, thickness, and systolic function. The visually estimated ejection fraction is between 55-60%. Spectral Doppler is indicative of a normal filling pattern. Peak GLS is -19.1%, within normal limits. Right Ventricle Normal right ventricular cavity size and systolic function. Atria Both atria are normal in size. There is no evidence of interatrial shunt. Aortic Valve Normal aortic valve structure and function. There is no aortic valve stenosis. There is trace (trivial) aortic valve regurgitation. Mitral Valve Normal mitral valve structure and function. There is trace mitral valve regurgitation. There is no mitral valve stenosis. Pulmonic Valve The pulmonic valve is likely normal. There is trace pulmonic valve regurgitation. Tricuspid Valve Normal tricuspid valve structure. There is no tricuspid valve regurgitation. The right ventricular systolic pressure is 25 mmHg. Normal right atrial pressure. There is no evidence of pulmonary hypertension. Great Vessels All visible segments of the aorta are normal in size. The pulmonary artery was not well visualized. There is no dilatation of the ascending aorta measuring 3.40 cm. Venous The inferior vena cava is normal in size and collapses greater than 50% with inspiration. Pericardium/Pleural There is no evidence of pericardial effusion. Prior Study Comparison No prior study available for comparison. Measurements 2D Linear Measurements IVSd: 0.93 0.6-0.9/0.6-1.0 cm LVIDd: 4.32 3.9-5.3/4.2-5.9 cm LVIDd Index: 2.44 2.4-3.2/2.2-3.1 cm/m2 LVIDs: 2.90 2.0-3.6 cm LVPWd: 0.78 0.7-1.1 cm LA Diam: 3.50 2.7-3.8/3.0-4.0 cm LAIDs Index: 1.98 1.5-2.3 cm/m2 LV Mass: 143.73 67-162/88-224 g LV Mass Index: 81.20 43-95/49-115 g/m2 LVOT Diam: 1.90 3.0+(-)1.3 cm 2D Systolic Function EF 4C: 56.30 >55% EF 2C: 57.30 >55% EF BiP: 56.90 >55% Mitral Valve MV Pk E: 0.68 MV PK A: 0.56 MV Decel Time: 248.00 E/A: 1.20 E'Lateral: 9.36 E'Medial: 7.29 E/E' Med: 9.30 E/E' Lat: 7.20 PHT: 73.00 MVA PHT: 3.01 Decel [place]: 2.73 Aortic Valve AoV Pk Wiliam: 1.33 AoV Mn Wiliam: 0.94 AoV VTI: 0.28 AoV Pk Grad: 7.00 Aov Mn Grad: 4.00 HANNY Cont.VTI: 2.50 LVOT LVOT Pk Wiliam: 1.03 LVOT Mn Wiliam: 0.69 LVOT VTI: 0.24 LVOT Pk Grad: 4.00 LVOT Mn Grad: 2.00 LVOT Diam: 1.90 LVOT Area: 2.84 Diastolic Function MV Pk E: 0.68 MV Pk A: 0.56 E/A: 1.20 E'Medial: 7.29 E/E' Med: 9.30 E' Laterial: 9.36 E/E' Lat: 7.20 Right Ventricle TAPSE (mm): 19.90 TVS' Wiliam: 12.00 Tricuspid Valve TR Pk Wiliam: 2.37 TR Pk Grad: 22.00 RA Press: 3.00 RVSP: 25.00 Great Vessels Aorta Sinus of Valsalva: 3.13 2.0-3.5 cm Ao Asc: 3.40 2.1-3.4 cm Ao Arch: 2.70 Updated in Other Vendor System with Status of Final Tonio Blackburn MD electronically signed on 06/22/2023 11:29:00 AM with status of Final
== END ==
LOC: HO.CARD 08:52
PROVIDERS: PCP Family Medicine; Visit Provider Family Medicine
DX: R01.1 Cardiac murmur, unspecified (principal)
CPT/HCPCS: 93306; 93356

== ENCOUNTER → 2023-06-21 08:56 | Outpatient (BNV) | payer OTHER, SELFPAY | PROVIDERS: PCP Family Medicine; Visit Provider Internal Medicine Cardiovascular Disease | DX: R01.1 Cardiac murmur, unspecified (principal) | CPT/HCPCS: 93306; 93356 ==

== ENCOUNTER → 2023-09-20 09:50 | Day surgery (SDC) | payer OTHER, SELFPAY ==
--- NOTE | 2023-09-19 13:01 | P.CONAN_ITS ---
HPI - Anesthesia Eval Consult details Narrative: 52yo F for Upper Endoscopy and Colonoscopy [facility] Active Problems Active Problems: All Active Problems Memory change (Acute) Murmur (Acute) Change in hearing (Acute) Asymptomatic bacteriuria (Acute) Immunization counseling (Acute) Chronic constipation (Acute) Pulmonary nodules (Acute) Varicose veins of left lower extremity with inflammation (Acute) Varicose vein of leg (Acute) Hypothyroidism (Acute) Elevated alanine aminotransferase (ALT) level (Acute) Family history of colonic polyps (Acute) GERD (gastroesophageal reflux disease) (Acute) Screening for colon cancer (Acute) Adult general medical exam (Acute) Screening for cervical cancer (Acute) Breast cancer screening by mammogram (Acute) Viral illness (Acute) Swelling of first metatarsophalangeal (MTP) joint of right foot (Acute) Encounter for screening laboratory testing for COVID-19 virus in asymptomatic patient (Acute) Seasonal allergies (Acute) Varicose veins of both lower extremities (Acute) Family History Family History Father HTN (hypertension) Diabetes Mother Diabetes Hypothyroidism Brother No problems noted. Sister No problems noted. Son No problems noted. Son No problems noted. Daughter No problems noted. Daughter No problems noted. Daughter No problems noted. 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 Current occupational exposures/hazards: No Cognitive needs: No Hearing needs: No Vision needs: No Meds Allergies Allergy/AdvReac Type Severity Reaction Status Date / Time acetaminophen [From Percocet] AdvReac Mild Stomach Verified 01/12/23 16:05 Upset codeine AdvReac Mild Stomach Verified 01/12/23 16:05 Upset oxycodone [From Percocet] AdvReac Mild Stomach Verified 01/12/23 16:05 Upset Home Medications ?Medication ?Instructions ?Recorded ?Confirmed ?Last Taken ?Type levothyroxine 150 mcg tablet mcg PO 11/23/19 01/12/23 Unknown History levonorgestrel 21 mcg/24 hr (up to intrauterine 12/16/21 01/12/23 Unknown History 8 years) 52 mg intrauterine device (Mirena) Assessment and Plan Assessment Anesthesia Assessment: Chart Reviewed
== END ==
LOC: HO.SSS 09:51
PROVIDERS: PCP Family Medicine; Visit Provider Internal Medicine Gastroenterology
DX: K59.09 Other constipation (principal); Z53.8 Procedure and treatment not carried out for other reasons; K21.9 Gastro-esophageal reflux disease without esophagitis

== ENCOUNTER 2024-01-16 16:03 | Outpatient (AMB) | payer OTHER, SELFPAY ==
--- NOTE | 2024-01-16 16:06 | MHC.PC.OV ---
Vital Signs 01/16/24 16:16 Height 5 ft 2 in Weight 176 lb 8 oz BMI 32.3 BP 100/60 Blood Pressure Location Rt brachial Position Sitting Respiration 16 Pulse 90 Pulse Source Pulse Oximeter Temp 98.0 F Temp Source Oral Pulse Oximetry (%) 99 Oxygen Delivery Method Room Air Intake Visit Reasons: CPE Intake Note: CPE Allergies acetaminophen [From Percocet] Adverse Reaction (Mild, Verified 01/16/24 16:09) Stomach Upset codeine Adverse Reaction (Mild, Verified 01/16/24 16:09) Stomach Upset oxycodone [From Percocet] Adverse Reaction (Mild, Verified 01/16/24 16:09) Stomach Upset Medication List - Last Reconciled 01/16/24 by Kyler Prescott MD cetirizine 10 mg PO DAILY ibuprofen 800 mg PO Q8H levonorgestrel (Mirena) intrauterine levothyroxine mcg PO minoxidil 2% (Hair Regrowth Treatment) 1 mL topical BID omeprazole 40 mg (2 x 20 mg) PO DAILY 30 days polyethylene glycol 3350 (Miralax) 238 grams PO ONCE PRN 1 day polyethylene glycol 3350 (Miralax) 238 grams PO ONCE 1 day tizanidine 4 mg (2 x 2 mg) PO BEDTIME PRN Tobacco use date assessed: 01/16/24 Dental Screening Dental Screen Date: 01/16/24 Did you have a dental visit in the last 12 months?: Yes Did you have a dental problem in the last 6 months where you did not have access to dental care?: No Was dental information given to patient?: Patient has dentist HPI CPE HPI Details 53 y/o female presents for a CPE with f/u labs and health maintenance. No recent labs to review. Pt reports increased stressors. She has recently lost her mom and has also been stressed by school. PHQ-9 11, MICKEY-7 17 today. SHe reports ear discomfort at night while laying down. Reports chest wall pain. Continues taking omeprazole for heartburn. She reports hand pain/pain at the base of her thumbs, bilateral. Has been taking ibuprofen for relief. PFSH Surgical History Hx of cholecystectomy FH: thyroid cancer H/O left inguinal hernia repair Family History Father HTN (hypertension) Diabetes Mother Diabetes Hypothyroidism Brother No problems noted. Sister No problems noted. Son No problems noted. Son No problems noted. Daughter No problems noted. Daughter No problems noted. Daughter No problems noted. Social History Household Members: Family Household Members Other:: , 6 children Housing: Apartment Alcohol intake: never Patient Tobacco Use Status: Never used Tobacco e-Cigarette/Vaping Use: Never Used Second Hand Smoke Exposure: No service: No Current occupational status: employed Current occupation: [employer] in October Current occupational exposures/hazards: No Cognitive needs: No Hearing needs: No Vision needs: No Questionnaire PHQ-9 Over the last 2 weeks, how often have you been bothered by any of the following problems? 1. Little interest or pleasure in doing things: several days 2. Feeling down, depressed, or hopeless: more than half the days 3. Trouble falling or staying asleep, or sleeping too much: more than half the days 4. Feeling tired or having little energy: several days 5. Poor appetite or overeating: more than half the days 6. Feeling bad about yourself - or that you are a failure or have let yourself or your family down: several days 7. Trouble concentrating on things, such as reading the newspaper or watching television: several days 8. Moving or speaking so slowly that other people could have noticed. Or the opposite - being so fidgety or restless that you have been moving around a lot more than usual: several days 9. Thoughts that you would be better off or of hurting yourself in some way: not at all Total score: 11 Depression Screening Interpretation: Positive Depression Screening Done: Yes 65423 - PHQ-9 Billing: Yes Source: Developed by Drs. Rufus Reyna, Mandie Nix, Luis Fernández and colleagues, with an educational molly from [employer]. Thrive Questionnaire Date Thrive assessed: 01/16/24 I am a: Patient What is your living situation today?: I have a steady place to live Within the past 12 months, did the food you bought not last and you didn't have the money to get more?: Often true Within the past 12 months, did you worry whether your food would run out before you got money to buy more?: Never true Do you have trouble paying for medicines?: No Do you have trouble getting transportation to medical appointments?: No Do you have trouble paying your heating and electricity bill?: No Do you have trouble taking care of your child, family member or friend?: No Do you have trouble with day-to-day activities such as bathing, preparing meals, shopping, managing finances, etc.?: No Are you currently unemployed and looking for a job?: No Are you interested in more education?: No Please select the resources that you would like help with: None Currently or been in a relationship where the following occur: No concerns reported THRIVE Score: 1 AUDIT C Alcohol Use Questionnaire (AUDIT-C) 1. How often do you have a drink containing alcohol?: Monthly or less 2. How many drinks containing alcohol do you have on a typical day when you are drinking?: 1 or 2 3. How often do you have six or more drinks on one occasion?: Never Total Score: 1 MICKEY-7 AMB Questionnaire MICKEY-7 Date MICKEY - 7 assessed: 01/16/24 Feeling nervous, anxious, or on edge: 2 = More than half the days Not being able to stop or control worryin = Nearly every day Worrying too much about different things: 2 = More than half the days Trouble relaxin = Nearly every day Being so restless that it is hard to sit still: 2 = More than half the days Becoming easily annoyed or irritable: 2 = More than half the days Feeling afraid as if something awful might happen: 3 = Nearly every day Total MICKEY-7 score (0-4 normal; 5-9 mild; 10-14 moderate; 15-21 severe): 17 Source: Developed by Drs. Rufus Reyna, Mandie Nix, Luis Fernández and colleagues, with an educational molly from [employer]. Review of Systems Const Denies chills, Denies fatigue, Denies fever(s), Denies headache(s) and Denies weakness Eyes Denies change in vision ENT Denies dizziness and Denies headache(s) Card Denies dyspnea Resp Denies cough, Denies dyspnea, Denies wheezing and Denies other (shortness of breath) GI Denies abdominal pain, Denies melena, Denies hematochezia, Denies change in bowel habits, Denies dyspepsia and Denies nausea Denies hematuria and Denies dysuria Musc Denies numbness and Denies tingling Skin/Breast Denies rash, Denies unusual bruising and Denies wounds Neuro Denies dizziness, Denies headache(s), Denies numbness, Denies Sensory deficit (Neuro), Denies tingling and Denies weakness Psych Reports anxiety and Reports depression Endo Denies fatigue Heladio/Lymph Denies easy bleeding and Denies easy bruising Aller/Immun Denies wheezing Physical exam (Primary Care) Vital Signs: Last Vital Signs Temp 98.0 F 01/16/24 16:16 Pulse 90 01/16/24 16:16 Resp 16 01/16/24 16:16 BP 100/60 01/16/24 16:16 Pulse Ox 99 01/16/24 16:16 Oxygen Delivery Method Room Air 01/16/24 16:16 BMI result Body Mass Index 32.3 Tobacco/Smoking Status: Tobacco use Status Tobacco use date assessed 01/16/24 01/16/24 16:16 Patient Tobacco Use Status Never used Tobacco 01/16/24 16:06 e-Cigarette/Vaping Use Never Used 01/16/24 16:06 PHQ-9: PHQ-9 Score PHQ-9: Total score 11 01/16/24 16:31 Depression Screening Interpretation: Positive Thrive Assessment: Date of Thrive Assessment Date Thrive assessed 01/16/24 01/16/24 16:16 Currently or been in a relationship where the following occur: No concerns reported Const General: well developed; No acute distress Nutritional Appearance: well nourished and obese Orientation/consciousness: patient oriented x3 HENMT Head: Yes normocephalic and Yes atraumatic Ears: hearing grossly normal bilaterally and TM's normal bilaterally General nose exam: Normal external nose present and Normal nares present Mouth: Normal oral and palatal mucosa present and moist mucous membranes Teeth and gingiva: dentition normal Throat: Yes posterior oropharynx normal Eyes General: appearance normal, both eyes and all related structures Pupils: Equal, round and reactive pupils present EOM: EOMs intact bilaterally Neck Neck: Yes normal visual inspection, Yes no lymphadenopathy and Yes trachea midline Thyroid: Thyroid normal Carotids: no bruits Lymphatic: no lymphadenopathy noted Chest Chest palpation & inspection: normal inspection of the chest Resp Effort & Inspection: normal respiratory effort Auscultation: clear to auscultation bilaterally Cardio Rate: regular rate Rhythm: regular rhythm Heart sounds: S1 normal heart sound present, S2 normal heart sound present, no gallops, no murmurs and no rubs Bruits: no abdominal aortic bruits and no carotid bruits GI Palpation (GI): No Abdominal aortic bruit present, Soft to palpation, nontender, No hepatosplenomegaly present and No Rebound tenderness present Auscultation: normal bowel sounds General: Yes no CVA tenderness Back/Spine/Pelvis Back: no CVA tenderness Cervical Spine: cervical ROM normal and No Cervical spine tenderness Thoracic/Lumbar Spine: thoraco-lumbar ROM normal, No pain with thoraco-lumbar ROM, No thoracic spinal tenderness and No lumbar spinal tenderness Skin Lesions: no lesions Rashes: no rashes Trauma: no lacerations or abrasions Wounds: no wounds Nails: normal Neuro General: patient oriented x3 and gait normal Cranial nerves: Yes Equal, round and reactive pupils present Cognition (Neuro): normal cognition Gait exam (Neuro): Normal gait present Motor exam (neuro): 5/5 motor strength present throughout Sensory Exam: No Sensory deficit (Neuro) Deep tendon reflexes (DTR's): Right patellar reflex intensity grade: 2+ and Left patellar reflex intensity grade: 2+ Extrem General: Yes normal to inspection and No edema Psych Appearance: grossly normal Affect: normal affect Attitude: cooperative Thought process: Normal thought process present Coding Level of Care Code Est Pt Level 4 (83026) Est Pt Prev Care 40-64y(09114) Diagnoses Adult general medical exam Z00.00 Ear discomfort H92.09 Chest wall pain R07.89 Anxiety with depression F41.8 Hand pain M79.643 GERD (gastroesophageal reflux disease) K21.9 Obesity E66.9 Pain in choi M79.669 Breast cancer screening by mammogram Z12.31 Screening for colon cancer Z12.11 Screening for cervical cancer Z12.4 Additional Codes PHQ-9 - 56930 - PHQ-9 Billing: Yes ([id number]) Assessment & Plan Assessment & Plan (1) Adult general medical exam: Code(s): Z00.00 - Encounter for general adult medical examination without abnormal findings Category: Medical Plan: 53-year-old?female?presents?for?complete?physical?exam (2) Ear discomfort: Code(s): H92.09 - Otalgia, unspecified ear Category: Medical Plan: Advised?Debrox?drops.??She?will?let?me?know?if?this?not?helping?and?I?will?refer?to?ENT?if?needed (3) Chest wall pain: Code(s): R07.89 - Other chest pain Category: Medical Plan: Can?use?ice/heat?and?Aspercreme Reproducible?chest?wall?pain.??No?evidence?of?cardiac?pain (4) Anxiety with depression: Code(s): F41.8 - Other specified anxiety disorders Category: Medical Plan: Referred?to?nurse?navigator?to?connect?her?with?a?therapist Trial?citalopram?10?mg?daily Will?follow-up?in?a?few?weeks (5) Hand pain: Code(s): M79.643 - Pain in unspecified hand Category: Medical Plan: Bilateral?thumb?pain Ronnie?sign?negative Ice/heat Ibuprofen Aspercreme If?not?improving?will?consider?occupational?therapy?in?or?referral?to?specialist (6) GERD (gastroesophageal reflux disease): Comment: Switch omeprazole to pantoprazole 40 mg daily Code(s): K21.9 - Gastro-esophageal reflux disease without esophagitis Category: Medical Plan: Referred?back?to?gastroenterology (7) Obesity: Code(s): E66.9 - Obesity, unspecified Category: Medical Plan: Patient?would?like?to?try?Ozempic Risks/benefits?discussed (8) Pain in choi: Code(s): M79.669 - Pain in unspecified lower leg Category: Medical Plan: Appears?muscular Ice/heat?and?gentle?stretching Can?try?some?magnesium?before?bedtime?and?advised?good?hydration (9) Breast cancer screening by mammogram: Code(s): Z12.31 - Encounter for screening mammogram for malignant neoplasm of breast Category: Medical Plan: Will?discuss?at?follow-up (10) Screening for colon cancer: Comment: Very stressed -home situation-support reassurance offered very receptive Code(s): Z12.11 - Encounter for screening for malignant neoplasm of colon Category: Medical Plan: Referred?to?Gastroenterology (11) Screening for cervical cancer: Code(s): Z12.4 - Encounter for screening for malignant neoplasm of cervix Category: Medical Plan: Will?discuss?follow-up Orders: Orders Comprehensive [place]. Panel Fast Today Z00.00 - Encounter for general adult medical examination without abnormal findings Microalbumin, Random (w Creat) Today I10 - Essential (primary) hypertension UA and rflx microscopic Today Z00.00 - Encounter for general adult medical examination without abnormal findings Free T4 (Free Thyroxine) Today E03.9 - Hypothyroidism, unspecified Complete Blood Count Auto Diff Today Z00.00 - Encounter for general adult medical examination without abnormal findings Lipid Panel Today Z00.00 - Encounter for general adult medical examination without abnormal findings HIV Ab/Ag Today Z11.3 - Encounter for screening for infections with a predominantly sexual mode of transmission Hepatitis B,C Profile Today Z11.3 - Encounter for screening for infections with a predominantly sexual mode of transmission Thyroid Stimulating Hormone Today E03.9 - Hypothyroidism, unspecified Triiodothyronine T3 Total Today E03.9 - Hypothyroidism, unspecified Referrals Nurse Navigator Referral F41.8 - Other specified anxiety disorders Gastroenterology Referral K21.9 - Gastro-esophageal reflux disease without esophagitis, Z12.11 - Encounter for screening for malignant neoplasm of colon Medications: New citalopram 10 mg PO DAILY 30 days 30 tabs 2RF semaglutide (Ozempic) for 4 weeks 0.25 mg (0.368 mL) subcut QWEEK 28 days 1.472 mL 2RF E66.9 - Obesity, unspecified Refilled cetirizine 10 mg PO DAILY 30 tabs 5RF J30.2 - Other seasonal allergic rhinitis polyethylene glycol 3350 (Miralax) 17 grams PO DAILY PRN 510 grams 6RF constipation minoxidil 2% (Hair Regrowth Treatment) 1 mL topical BID 60 mL 2RF
[2024-01-16 16:16] VITALS: BP 100/60; PULSE 90; RESP 16; TEMP 36.7; O2SAT 99; BMI 32.3
== END 2024-01-16 16:53 | disposition home or self-care (01) ==
PROVIDERS: PCP Family Medicine; Visit Provider Family Medicine
DX: Z00.00 Encounter for general adult medical examination without abnormal findings (principal); H92.03 Otalgia, bilateral; Z68.32 Body mass index [BMI] 32.0-32.9, adult; E66.9 Obesity, unspecified; R07.89 Other chest pain; F41.8 Other specified anxiety disorders; M79.641 Pain in right hand; K21.9 Gastro-esophageal reflux disease without esophagitis; M79.642 Pain in left hand; Z12.31 Encounter for screening mammogram for malignant neoplasm of breast; Z12.11 Encounter for screening for malignant neoplasm of colon

== ENCOUNTER → 2024-01-16 16:03 | Outpatient (BNVA) | payer OTHER, SELFPAY | PROVIDERS: PCP Family Medicine; Visit Provider Family Medicine | DX: Z00.00 Encounter for general adult medical examination without abnormal findings (principal); H92.09 Otalgia, unspecified ear; R07.89 Other chest pain; F41.8 Other specified anxiety disorders; M79.643 Pain in unspecified hand; K21.9 Gastro-esophageal reflux disease without esophagitis; E66.9 Obesity, unspecified; M79.669 Pain in unspecified lower leg | CPT/HCPCS: 96127; 99212; 99396 ==

== ENCOUNTER → 2024-01-17 09:45 | Outpatient (BNV) | payer OTHER, SELFPAY | PROVIDERS: Visit Provider Internal Medicine | DX: Z12.31 Encounter for screening mammogram for malignant neoplasm of breast (principal) | CPT/HCPCS: 77063; 77067 ==

== ENCOUNTER 2024-01-17 09:49 | Outpatient (REF) | payer OTHER, SELFPAY | END 2024-01-17 09:50 | disposition home or self-care (01) | LOC: HO.MAMMO 09:49 | PROVIDERS: Visit Provider Family Medicine | DX: Z12.31 Encounter for screening mammogram for malignant neoplasm of breast (principal) | CPT/HCPCS: 77063; 77067 ==

== ENCOUNTER 2024-02-10 10:58 | Outpatient (REF) | payer OTHER, SELFPAY ==
--- NOTE | ~2024-02-10 | US_ITS ---
EXAMINATION: MM DIAGNOSTIC DIGITAL BREAST TOMOSYNTHESIS, RIGHT Limited right breast ultrasound. CLINICAL INFORMATION: Call back from screening for asymmetry in the superior right breast on MLO view. COMPARISON: Mammography: Available prior examinations. TECHNIQUE: Digital breast tomosynthesis is performed in both the craniocaudal and mediolateral oblique views along with computer-aided detection (CAD). Synthesized 2D images are generated from the tomosynthesis. Limited right breast ultrasound. FINDINGS: The breasts are heterogeneously dense, which may obscure small masses (ACR BI-RADS breast composition Category c). Right: Circumscribed oval mass in the superior breast on MLO view persists. No suspicious calcifications or other abnormal findings. Targeted color Doppler ultrasound demonstrates a hypoechoic oval circumscribed solid mass at 12:00 2 cm from nipple measuring 12 x 16 x 7 mm. There is a hypoechoic oval circumscribed solid mass at 11:00 2 cm from the nipple measuring 6 x 4 x 6 mm. US/US breast RT limited mamm only IMPRESSION: Right: 1. Hypoechoic oval solid mass at 12:00 2 cm from the nipple measuring up to 16 mm. This area has increased from priors on mammogram and therefore ultrasound-guided core needle biopsy at this time as recommended for further confirmation. The recommendations were discussed with the patient the procedure will be scheduled. 2. Hypoechoic solid mass at 11:00 2 cm from the nipple. Recommend 6 month follow-up pending pathology of the above mass. ASSESSMENT: BI-RADS BI-RADS 4 - Suspicious finding RECOMMENDATION: Biopsy recommended In addition recommend 6 month follow-up ultrasound mass at 11:00 2 cm from the nipple. Results were provided to the patient at time of visit by the technologist. This patient's information was entered into a reminder system with a target due date for their next mammogram. Electronically signed by: Radha Ayala DO 02/10/2024 12:02 PM [facility] - [place], [place]
== END 2024-02-10 10:59 | disposition home or self-care (01) ==
LOC: HO.MAMMO 10:58
PROVIDERS: PCP Family Medicine; Visit Provider Family Medicine
DX: N64.89 Other specified disorders of breast (principal); R92.331 Mammographic heterogeneous density, right breast; N63.11 Unspecified lump in the right breast, upper outer quadrant
CPT/HCPCS: 76642; 77061; 77065

== ENCOUNTER → 2024-02-10 11:45 | Outpatient (BNV) | payer OTHER, SELFPAY | PROVIDERS: PCP Family Medicine; Visit Provider Internal Medicine | DX: R92.8 Other abnormal and inconclusive findings on diagnostic imaging of breast (principal) | CPT/HCPCS: 76642; 77061; 77065 ==

== ENCOUNTER 2024-02-13 10:59 | Outpatient (REF) | payer OTHER, SELFPAY ==
[2024-02-13 14:36] LABS: Appearance Urine Clear; Color Urine Yellow; Glucose Urine UA Negative (Negative); Leukocyte Esterase Urine Negative (Negative); Nitrite Urine Negative (Negative); PH 5.5 (5.0-9.0); Specific Gravity - Urine >= 1.030 (1.005-1.025); Urine Blood Negative (Negative); Urine Ketones Negative (Negative); Urine Protein Negative (Neg-Trace)
[2024-02-13 14:50] LABS: MANUAL DIFF FLAG NO
[2024-02-13 14:56] LABS: Basophils Percent Auto 0.4 % (0-2); Eosinophils Absolute Auto 0.1 X10*3/uL (0.0-0.4); Eosinophils Percent Auto 1.6 % (0-4); Hematocrit 42.3 % (37.0-47.0); Hemoglobin 13.8 g/dl (12.0-16.0); Imm Gran Abs Auto 0.03 X10*3/uL (0.00-0.03); Imm Gran Pct Auto 0.4 % (0.0-0.4); Lymphocytes Absolute Auto 2.2 X10*3/uL (1.2-4.9); Lymphocytes Percent Auto 27.1 % (20-40); Mean Corpuscular HGB Conc 32.6 g/dl (31.0-35.0); Mean Corpuscular Hemoglobin 31.1 pg (27.0-33.0); Mean Corpuscular Volume 95.3 fL (80.0-98.0); Mean Platelet Volume 9.5 fL (9.4-12.3); Monocytes Absolute Auto 0.5 X10*3/uL (0.1-1.2); Monocytes Percent Auto 6.8 % (2-11); Neutrophils Absolute Auto 5.1 x10*3/uL (2.0-8.3); Neutrophils Percent Auto 63.7 % (45-73); Platelet Count 360 X10*3/uL (160-400); Red Blood Count 4.44 X10*6/uL (4.20-5.50); Red Cell Distribution Width 13.6 % (11.0-16.0)
[2024-02-13 15:13] LABS: Creatinine Urine 175.73 mg/dL; Microalbum/Creatinine Ratio Ur 21.6 ug/mg cr (<30)
[2024-02-13 16:21] LABS: Alanine Aminotransferase 33 U/L (0-31); Albumin Level 4.4 g/dL (3.5-5.0); Anion Gap 13 (12-20); Aspartate Amino Transferase 24 U/L (5-31); Bilirubin Total 0.2 mg/dL (0.0-1.0); Blood Urea Nitrogen 17 mg/dL (9-16); Calcium 9.2 mg/dL (8.4-10.2); Carbon Dioxide 24 mmol/L (22-29); Chloride 108 mmol/L (96-108); Cholesterol 145 mg/dL (<200); Estimated Glomerular Filt Rate > 60; Free T4 (Free Thyroxine) 1.26 ng/dL (0.71-1.85); Glucose Fasting 79 mg/dL (60-99); HDL Cholesterol 57 mg/dL (>40); LDL Cholesterol Calculated 71 mg/dL (<100); Sodium 141 mmol/L (135-145); Thyroid Stimulating Hormone 0.11 uIU/mL (0.32-4.0); Total Protein 8.1 g/dL (6.5-8.0); Triglycerides 89 mg/dL (<150)
[2024-02-13 17:16] LABS: Alkaline Phosphatase 63 U/L (39-117)
[2024-02-14 08:30] LABS: HBS Num1 38.83 mIU/mL (0-7.99); HBc Num1 0.13 S/CO (0.00-0.79); HBsAGNum1 0.42 S/CO (0.00-0.99); HIV AB/AG Nonreactive (Nonreactive); HIV Num 1 0.05 S/CO (0.00-0.99); Hepatitis B Core Antibody Nonreactive (Nonreactive); Hepatitis B Surface Antigen Negative (Negative); ~HepC Num1 0.08 S/CO (0.00-0.79); ~Hepatitis B Surface Antibody REACTIVE (Nonreactive); ~Hepatitis C Antibody Nonreactive (Nonreactive)
[2024-02-14 09:14] LABS: Triiodothyronine T3 Total 133 ng/dL (76-181)
== END 2024-02-13 11:00 | disposition home or self-care (01) ==
LOC: HO.WFDLDS 10:59
PROVIDERS: Visit Provider Family Medicine
DX: Z00.00 Encounter for general adult medical examination without abnormal findings (principal); Z11.3 Encounter for screening for infections with a predominantly sexual mode of transmission; E03.9 Hypothyroidism, unspecified; I10 Essential (primary) hypertension
CPT/HCPCS: 36415; 80053; 80061; 81003; 82043; 82570; 84439; 84443; 84480; 85025; 86704; 86706; 86803; 87340; 87389

== ENCOUNTER 2024-02-23 10:41 | Outpatient (AMB) | payer OTHER, SELFPAY ==
--- NOTE | 2024-02-23 10:32 | A.OFFPC_ITS ---
Intake Visit Reasons: Fu Labs /review medication Allergies acetaminophen [From Percocet] Adverse Reaction (Mild, Verified 02/23/24 10:33) Stomach Upset codeine Adverse Reaction (Mild, Verified 02/23/24 10:33) Stomach Upset oxycodone [From Percocet] Adverse Reaction (Mild, Verified 02/23/24 10:33) Stomach Upset Tobacco use date assessed: 01/16/24 Dental Screening Dental Screen Date: 01/16/24 HPI Fu Labs /review medication HPI Details 53 y/o female presents to f/u labs via [facility]. Labs drawn 02/13/24. Reviewed labs with pt. Elevated ALT of 33. Triglcyerides 89. TC 145. LDL 71. HDL 57. PFSH Surgical History Hx of cholecystectomy FH: thyroid cancer H/O left inguinal hernia repair Family History Father HTN (hypertension) Diabetes Mother Diabetes Hypothyroidism Brother No problems noted. Sister No problems noted. Son No problems noted. Son No problems noted. Daughter No problems noted. Daughter No problems noted. Daughter No problems noted. 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 Rufus Reyna, Mandie Nix, Luis Fernández and colleagues, with an educational molly from [employer]. Review of Systems Const Denies chills, Denies fatigue, Denies fever(s), Denies headache(s) and Denies weakness ENT Denies dizziness and Denies headache(s) Card Denies dyspnea Resp Denies cough, Denies dyspnea, Denies wheezing and Denies other (shortness of breath) Musc Denies numbness and Denies tingling Neuro Denies dizziness, Denies headache(s), Denies numbness, Denies tingling and Denies weakness Psych Denies anxiety and Denies depression Endo Denies fatigue Aller/Immun Denies wheezing Physical exam (Primary Care) Tobacco/Smoking Status: Tobacco use Status Tobacco use date assessed 01/16/24 02/23/24 10:35 Patient Tobacco Use Status Never used Tobacco 02/23/24 10:35 e-Cigarette/Vaping Use Never Used 02/23/24 10:35 Thrive Assessment: Date of Thrive Assessment Date Thrive assessed 01/16/24 02/23/24 10:35 Telehealth Telehealth Telehealth Platform: Telephone Location of provider rendering services: practice address Location of patient: address on file Patient Identification confirmed using: Name, : Yes Telehealth method: voice only Patient verbally consented to treatment: Yes Patient verbally consented to billing insurance company: Yes Patient informed of any privacy concerns related to visit: Yes Minutes spent on Phone/Video with Pt.: 10 Coding Level of Care Code Tele Est Pt Level 2 (74080) Diagnoses Elevated alanine aminotransferase (ALT) level R74.01 Hypothyroidism E03.9 Obesity E66.9 Breast cancer screening by mammogram Z12.31 Assessment & Plan Assessment & Plan (1) Elevated alanine aminotransferase (ALT) level: Code(s): R74.01 - Elevation of levels of liver transaminase levels Category: Medical Plan: Mildly?elevated?ALT Patient?will?hydrate?well?and?work?at?weight?loss Will?recheck?in?a?few?months (2) Hypothyroidism: Code(s): E03.9 - Hypothyroidism, unspecified Category: Medical Plan: TSH?appears?suppressed. 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 Will?recheck?labs?at?next?blood?draw (3) Obesity: Code(s): E66.9 - Obesity, unspecified Category: Medical Plan: Patient?has?strong?family?history?of?nearly?every?family?member?with?diabetes. He?has?been?having?significant?difficulty?with?weight?loss Had?sent?a?script?for?Ozempic?but?this?was?declined.??She?spoke?to?insurance?and ?suggested?she?include?this?information?which?I?have?done. (4) Breast cancer screening by mammogram: Code(s): Z12.31 - Encounter for screening mammogram for malignant neoplasm of breast Category: Medical Plan: Patient?has?fine-needle?biopsy?scheduled?with? Follow-up?with?surgery?as?recommended Orders: Orders Free T4 (Free Thyroxine) Today E03.9 - Hypothyroidism, unspecified Comprehensive Met. Panel Today R74.01 - Elevation of levels of liver transaminase levels Triiodothyronine T3 Total Today E03.9 - Hypothyroidism, unspecified Thyroid Stimulating Hormone Today E03.9 - Hypothyroidism, unspecified Medications: Changed From semaglutide (Ozempic) for 4 weeks 0.25 mg (0.368 mL) subcut QWEEK 28 days 1.472 mL 2RF E66.9 - Obesity, unspecified To semaglutide (Ozempic) Strong Family History of Diabetes in nearly all family members and difficulty losing weight. 0.25 mg (0.368 mL) subcut QWEEK 1.472 mL 2RF 28 days E66.9 - Obesity, unspecified
== END 2024-03-01 09:38 | disposition home or self-care (01) ==
LOC: HO.HMCFM 10:41
PROVIDERS: PCP Family Medicine; Visit Provider Family Medicine
DX: R74.01 Elevation of levels of liver transaminase levels (principal); E03.9 Hypothyroidism, unspecified; E66.9 Obesity, unspecified; Z12.31 Encounter for screening mammogram for malignant neoplasm of breast

== ENCOUNTER → 2024-02-23 10:41 | Outpatient (BNVA) | payer OTHER, SELFPAY | PROVIDERS: PCP Family Medicine; Visit Provider Family Medicine ==

== ENCOUNTER 2024-03-07 09:37 | Outpatient (AMB) | payer OTHER, SELFPAY ==
--- NOTE | 2024-03-07 09:48 | A.OFFVIS_ITS ---
Vital Signs 03/07/24 09:58 Height 5 ft 2 in Weight 175 lb 4 oz BMI 32.1 Intake Visit Reasons: US guided biopsy rt breast 12:00 mass Intake Note: This patient presents for US guided biopsy consult for right breast 12:00 mass. Pt c/o; no breast complaints at this time. 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 She had undergone mammogram on ultrasound earlier this month and this showed a hypoechoic oval solid mass at the 12 o'clock position of the right breast. This has increased prior mammogram imaging. An ultrasound biopsy had been recommended She denies any palpable breast masses. Her menarche was at the age of 15. Her 1st was at age of 21. She had 6 pregnancies. She still has her periods. She does not have any significant family history of breast cancer. [facility] Medical History (Updated 03/06/24 @ 13:33 by Bebeto Aguilera MD) Breast mass, right Surgical History Hx of cholecystectomy FH: thyroid cancer H/O left inguinal hernia repair Family History (Updated 03/07/24 @ 10:00 by Sun Harrison Romel) Father HTN (hypertension) Diabetes Mother Diabetes Hypothyroidism Brother No problems noted. Sister No problems noted. Son No problems noted. Son No problems noted. Daughter No problems noted. Daughter No problems noted. Daughter No problems noted. 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 Current occupational exposures/hazards: No Cognitive needs: No Hearing needs: No Vision needs: No Female Reproductive History Menstrual Age of Menarche: 15 Total pregnancies: 6 Number of Living Children: 6 Ab spontaneous: 0 Review of Systems Const Denies chills and Denies fever(s) Card Denies chest pain, Denies dyspnea and Denies dyspnea on exertion Resp Denies cough, Denies dyspnea and Denies dyspnea on exertion GI Denies hematochezia and Denies change in bowel habits Denies hematuria Musc Denies back pain and Denies limited range of motion Neuro Denies focal weakness and Denies convulsions Psych Denies depression and Denies mood swings Physical Exam Const General: comfortable and no acute distress Orientation/consciousness: patient oriented x3 Neck Neck: Yes no lymphadenopathy Chest Other: No palpable breast masses, no nipple or skin changes, no axillary lymphadenopathy. Resp Auscultation: clear to auscultation bilaterally Cardio Rhythm: regular rhythm GI Palpation (GI): Soft to palpation, nontender and no guarding Neuro General: patient oriented x3 Assessment & Plan Assessment & Plan (1) Breast mass, right: Code(s): N63.10 - Unspecified lump in the right breast, unspecified quadrant Category: Medical Plan: She has a right breast mass seen on ultrasound and mammogram as described above. This has increased compared to her previous mammogram imaging. An ultrasound biopsy was therefore recommended. I reviewed with the technique of this procedure. I will see her in the office next week to discuss the path report. She also has a smaller seen on imaging on the same breast and a six-month follow up as recommended by the radiologist. Orders: Orders US breast ndl core biopsy RT 03/06/24 N63.10 - Unspecified lump in the right breast, unspecified quadrant Medications: Discontinued semaglutide (Ozempic) Strong Family History of Diabetes in nearly all family members and difficulty losing weight. Discontinued Reason: Doctor's Order 0.25 mg (0.368 mL) subcut QWEEK 28 days 1.472 mL 2RF E66.9 - Obesity, unspecified Coding Level of Care Code New Pt Level 3 (19793) Diagnoses Breast mass, right N63.10
[2024-03-07 09:58] VITALS: BMI 32.1
== END 2024-03-07 10:07 | disposition home or self-care (01) ==
PROVIDERS: PCP Family Medicine; Visit Provider Surgery
DX: N63.10 Unspecified lump in the right breast, unspecified quadrant (principal)
CPT/HCPCS: 99203

== ENCOUNTER → 2024-03-07 09:37 | Outpatient (BNVA) | payer OTHER, SELFPAY | PROVIDERS: PCP Family Medicine; Visit Provider Surgery | DX: N63.10 Unspecified lump in the right breast, unspecified quadrant (principal) ==

== ENCOUNTER 2024-03-14 14:49 | Outpatient (AMB) | payer OTHER, SELFPAY ==
--- NOTE | 2024-03-14 14:53 | MHC.OFFVIS ---
Vital Signs 03/14/24 14:55 Height 5 ft 2 in Weight 176 lb 5.917 oz BMI 32.3 BP 120/64 Blood Pressure Location Rt brachial Position Sitting Pulse 72 Pulse Source Pulse Oximeter Pulse Oximetry (%) 97 Oxygen Delivery Method Room Air Intake Visit Reasons: chronic constipation/Laina pt Intake Note: ESTABLISHED PATIENT for Constipation mgmt, fmhx of polypectomy Chief Complaint; C/O Severe GERD, dysphagia, epigastric pain, SOB. Constipation w/o concern for hemorrhoids. Pt was supposed to have colo + egd but unfortunately was cancelled due to Anesthesiologist being unavailable. Pt making multiple lifestyle changes without relief. Pt has taken same PPI for multiple years. Otc Clerk Required: No Accompanied by: Self / Same As Patient Allergies acetaminophen [From Percocet] Adverse Reaction (Mild, Verified 03/14/24 14:54) Stomach Upset codeine Adverse Reaction (Mild, Verified 03/14/24 14:54) Stomach Upset oxycodone [From Percocet] Adverse Reaction (Mild, Verified 03/14/24 14:54) Stomach Upset HPI HPI chronic constipation/Laina pt: Details: LAST VISIT: 10/05/2022 WITH SHANON VERDE A 51 y/o F- referred for index screening colonoscopy presents with acid reflux despite PPI b.i.d.. She has made dietary modifications as well and experiences water brash. She is well intermittent constipation, tries to maintain high-fiber diet. 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 Had long discussion, reassurance offered, need support. Appetite is good, no nausea, vomiting hematemesis, hematochezia fever chills Depressed due to home situation, certainly understandable-no homicidal suicidal ideation, TODAY'S VISIT: Patient is here today to establish care and to discuss going for colonoscopy. Patient was previously seen by Shanon Verde. Was sent for colonoscopy, however due to anesthesia not available patient unable to go through with the procedure. Patient reports today occasional constipation. Have use Dulcolax in the past if no BM in 3 or 4 days. Patient reports to be helpful. Currently she is taking omeprazole 40 mg as needed. Patient was prescribed to take it as daily, however she is forgetting at times. Patient reports few episodes of acid reflux and dyspepsia during the night. Patient does not eat past 7 anymore. Patient denies any dysphagia or odynophagia. Denies melena, hematochezia, unintentional weight loss or ribbon like stools. Denies any family history of CRC. Not on any anticoagulation medication. Denies any issues with anesthesia in the past. Denies any cardiac or respiratory symptoms. 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 [facility] Medical History Breast mass, right Surgical History Hx of cholecystectomy FH: thyroid cancer H/O left inguinal hernia repair Family History Father HTN (hypertension) Diabetes Mother Diabetes Hypothyroidism Brother No problems noted. Sister No problems noted. Son No problems noted. Son No problems noted. Daughter No problems noted. Daughter No problems noted. Daughter No problems noted. 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 Current occupational exposures/hazards: No Cognitive needs: No Hearing needs: No Vision needs: No Female Reproductive History Menstrual Age of Menarche: 15 Review of Systems Const Denies weight gain and Denies weight loss ENT Reports no additional complaints, Reports dysphagia and Denies odynophagia Card Reports no additional complaints Resp Reports no additional complaints GI Denies abdominal pain, Denies belching, Denies melena, Reports bloating, Denies change in bowel habits, Reports dysphagia, Denies excessive flatus, Denies dyspepsia, Reports heartburn, Denies diarrhea, Denies loose stools, Denies nausea, Denies odynophagia and Denies vomiting Reports no additional complaints Musc Reports no additional complaints Neuro Reports no additional complaints Psych Reports no additional complaints Endo Reports no additional complaints Physical Exam Vital Signs: Last Vital Signs Pulse 72 03/14/24 14:55 BP 120/64 03/14/24 14:55 Pulse Ox 97 03/14/24 14:55 Oxygen Delivery Method Room Air 03/14/24 14:55 BMI result Body Mass Index 32.3 Const General: healthy appearing and no acute distress Nutritional Appearance: obese Orientation/consciousness: patient oriented x3 Resp Effort & Inspection: normal respiratory effort, able to speak in complete sentences, no tracheal deviation and symmetric chest movement Auscultation: clear to auscultation bilaterally Cardio Rate: regular rate GI Inspection: Yes normal to inspection, No distended and Yes obesity Palpation (GI): Soft to palpation, not firm, nontender and No hepatosplenomegaly present Auscultation: normal bowel sounds General: Yes no CVA tenderness Back/Spine/Pelvis Back: no CVA tenderness Skin General skin exam: elasticity normal, turgor normal and dry skin Neuro General: patient oriented x3 Psych Appearance: grossly normal Mental Status: mental status grossly normal Assessment & Plan Assessment & Plan (1) Chronic constipation: Code(s): K59.09 - Other constipation Category: Medical (2) GERD (gastroesophageal reflux disease): Code(s): K21.9 - Gastro-esophageal reflux disease without esophagitis Category: Medical Qualifiers: Esophagitis presence: esophagitis presence not specified Qualified Code(s): K21.9 - Gastro-esophageal reflux disease without esophagitis (3) Screening for colon cancer: Code(s): Z12.11 - Encounter for screening for malignant neoplasm of colon Category: Medical Plan Patient was encouraged to take omeprazole daily. Continue avoiding dietary triggers and late night snacking. Staying upright for minimum 3 hours after meals discussed with patient. Patient will be sent for upper endoscopy to rule out duodenitis, gastritis, esophagitis, Barretts, H pylori. Patient will start taking Dulcolax daily. Increase fluid intake and activity to promote better bowel motility. What to expect before during and after procedure discussed with patient. Stressed the importance of good bowel prep and clear liquid diet. Patient was prescribed Zepbound, however insurance has not covered. Please check with patient if she is on any GLP1 before scheduling the procedure. Patient will follow-up after procedure. She will call our office if she will have any GI concerning symptoms. She is agreeable to this plan and verbalizes understanding of instructions. She was given the opportunity to ask questions and all questions answered. Thank you for allowing me to participate in her care Medications: New bisacodyl (Dulcolax (bisacodyl)) 10 mg (2 x 5 mg) PO BEDTIME 180 tabs 4RF constipation Refilled polyethylene glycol 3350 (Miralax) Take as directed by mouth the day before your procedure. 238 grams PO ONCE 1 day 238 grams 0RF Coding Level of Care Code Est Pt Level 4 (71468) Complex EM visit Add On G2211 Diagnoses Chronic constipation K59.09 Gastroesophageal reflux disease, unspecified whether esophagitis present K21.9 Esophagitis presence: esophagitis presence not specified Screening for colon cancer Z12.11 Time Spent (min) 35 Comment 25 minutes spent with patient and additional 10 minutes spent reviewing her records
[2024-03-14 14:55] VITALS: BP 120/64; PULSE 72; O2SAT 97; BMI 32.3
== END 2024-03-14 15:33 | disposition home or self-care (01) ==
PROVIDERS: PCP Family Medicine; Visit Provider Nurse Practitioner Family
DX: K59.09 Other constipation (principal); K21.9 Gastro-esophageal reflux disease without esophagitis; Z12.11 Encounter for screening for malignant neoplasm of colon
CPT/HCPCS: 99214

== ENCOUNTER → 2024-03-14 14:49 | Outpatient (BNVA) | payer OTHER, SELFPAY | PROVIDERS: PCP Family Medicine; Visit Provider Nurse Practitioner Family ==

== ENCOUNTER 2024-04-04 10:19 | Outpatient (AMB) | payer OTHER, SELFPAY ==
--- NOTE | 2024-04-04 10:12 | MHC.PC.OV ---
Intake Visit Reasons: Sleeping concerns Allergies acetaminophen [From Percocet] Adverse Reaction (Mild, Verified 04/04/24 10:12) Stomach Upset codeine Adverse Reaction (Mild, Verified 04/04/24 10:12) Stomach Upset oxycodone [From Percocet] Adverse Reaction (Mild, Verified 04/04/24 10:12) Stomach Upset Tobacco use date assessed: 01/16/24 Dental Screening Dental Screen Date: 01/16/24 HPI Sleeping concerns HPI Details 53 y/o female presents today with sleeping concerns. Patient?says?that?her??recorded?her?while?sleeping. ?Recording documents?loud?snoring,?gasping?and?holding?breath?and?talking?in?her?sleep. She?says?that?when?she?awakens?she?does?not?feel?rested.??She?is?having?trouble?staying?weight?during?the?day?and?also?has?difficulty?staying?awake?and?focusing?while?driving Her?father?also?has?similar?symptoms?and?is?being?worked?up?for?sleep?apnea?well PFSH Medical History Breast mass, right Surgical History Hx of cholecystectomy FH: thyroid cancer H/O left inguinal hernia repair Family History Father HTN (hypertension) Diabetes Mother Diabetes Hypothyroidism Brother No problems noted. Sister No problems noted. Son No problems noted. Son No problems noted. Daughter No problems noted. Daughter No problems noted. Daughter No problems noted. Paternal Grandmother Breast cancer Paternal Grandfather Colon cancer Social History Household Members: Family Household Members Other:: , 6 children Housing: Apartment Alcohol intake: never Patient Tobacco Use Status: Never used Tobacco e-Cigarette/Vaping Use: Never Used Second Hand Smoke Exposure: No service: No Current occupational status: employed Current occupation: [employer]- [employer] in October Current occupational exposures/hazards: No Cognitive needs: No Hearing needs: No Vision needs: No Female Reproductive History Menstrual Age of Menarche: 15 Questionnaire Thrive Questionnaire Date Thrive assessed: 01/16/24 MICKEY-7 AMB Questionnaire MICKEY-7 Date MICKEY - 7 assessed: 01/16/24 Source: Developed by Drs. Rufus Reyna, Mandie Nix, Luis Fernández and colleagues, with an educational molly from [employer]. Review of Systems Const Denies chills, Denies fatigue, Denies fever(s), Denies headache(s) and Denies weakness ENT Denies dizziness and Denies headache(s) Card Denies dyspnea Resp Details: Apneic?events?while?sleeping Denies cough, Denies dyspnea, Denies wheezing and Denies other (shortness of breath) Musc Denies numbness and Denies tingling Neuro Denies dizziness, Denies headache(s), Denies numbness, Denies tingling and Denies weakness Psych Denies anxiety and Denies depression Endo Denies fatigue Aller/Immun Denies wheezing Physical exam (Primary Care) Tobacco/Smoking Status: Tobacco use Status Tobacco use date assessed 01/16/24 04/04/24 10:14 Patient Tobacco Use Status Never used Tobacco 04/04/24 10:14 e-Cigarette/Vaping Use Never Used 04/04/24 10:14 Thrive Assessment: Date of Thrive Assessment Date Thrive assessed 01/16/24 04/04/24 10:14 Telehealth Telehealth Telehealth Platform: Telephone Location of provider rendering services: practice address Location of patient: address on file Patient Identification confirmed using: Name, : Yes Telehealth method: voice only Patient verbally consented to treatment: Yes Patient verbally consented to billing insurance company: Yes Patient informed of any privacy concerns related to visit: Yes Minutes spent on Phone/Video with Pt.: 5 Coding Level of Care Code Tele Est Pt Level 2 (70048) Diagnoses Sleep apnea G47.30 Hypothyroidism E03.9 Assessment & Plan Assessment & Plan (1) Sleep apnea: Code(s): G47.30 - Sleep apnea, unspecified Category: Medical Plan: Patient's??recorded?her snoring?loudly, holding?breath, gasping?and?talking?in?her?sleep. Wakes?up?feeling?unrested. Sleepy?throughout?her?day?and?difficulty?staying?awake?while?driving. Likely?obstructive?sleep?apnea Referred?to?sleep?medicine?for?sleep?study Encouraged?her?to?find?ways?to?sleep?on?her?side?only (2) Hypothyroidism: Code(s): E03.9 - Hypothyroidism, unspecified Category: Medical Plan: TSH?appeared?suppressed?at?last?visit.??Had?sent?results?to?her?instrument tech,?DrCassie?Jhon She?has?an?upcoming?appointment?with?me?in?April?and?can?get?her?repeat?labs?drawn?prior?to?that Orders: Referrals Sleep Medicine Referral G47.10 - Hypersomnia, unspecified, G47.30 - Sleep apnea, unspecified, R06.83 - Snoring, R91.8 - Other nonspecific abnormal finding of lung field
== END 2024-04-04 17:05 | disposition home or self-care (01) ==
LOC: HO.HMCFM 10:19
PROVIDERS: PCP Family Medicine; Visit Provider Family Medicine
DX: G47.30 Sleep apnea, unspecified (principal); E03.9 Hypothyroidism, unspecified

== ENCOUNTER → 2024-04-04 10:19 | Outpatient (BNVA) | payer OTHER, SELFPAY | PROVIDERS: PCP Family Medicine; Visit Provider Family Medicine ==

== ENCOUNTER → 2024-04-11 08:00 | Outpatient (BNV) | payer OTHER, SELFPAY | PROVIDERS: PCP Family Medicine; Visit Provider Internal Medicine | DX: N63.15 Unspecified lump in the right breast, overlapping quadrants (principal) | CPT/HCPCS: 19083; 77065 ==

== ENCOUNTER 2024-04-11 08:06 | Outpatient (REF) | payer OTHER, SELFPAY ==
--- NOTE | ~2024-04-11 | MM_ITS ---
PROCEDURE: ULTRASOUND-GUIDED RIGHT BREAST BIOPSY CLINICAL INFORMATION: Right breast mass at 12:00 on ultrasound increased on mammogram from priors. COMPARISON: Comparison with available prior exams on PACS. TECHNIQUE: The details of the procedure, as well as the risks, benefits, and alternatives to the procedure were explained to the patient in detail and all of her questions were answered, after which, written informed consent was obtained. PROCEDURE: Prior to the procedure, sonography revealed hypoechoic oval solid mass at 12:00. A time-out was performed, the lesion intended for biopsy was targeted and the skin of the right breast was then prepped and draped in the usual sterile fashion. Using sonographic guidance, sterile technique, and 1% lidocaine without epinephrine for local anesthesia, a total of 4 cores were obtained through the targeted area with a 14-gauge biopsy device. At the completion of tissue sampling, a single butterfly metallic clip was deposited at the biopsy site. An appropriate sample was obtained. The postprocedure 2-view direct digital mammogram reveals satisfactory positioning of the biopsy clip. The patient tolerated the procedure well and, after assuring adequate hemostasis, was discharged in good condition after reviewing postbiopsy breast care instructions. Final pathology results are pending. MM/MM tomosynthesis diagnostic RT IMPRESSION: 1. Uncomplicated sonographically-guided core biopsy of the right breast. The 2-view direct digital postprocedure mammogram reveals satisfactory positioning of the biopsy clip. 2. Final pathology results are pending. A separate report with final recommendations will be issued once these results are made available. 3. Recommend 6 month follow-up of hypoechoic solid mass 11:00 2 cm from the nipple pending pathology of the above mass. Electronically signed by: Radha Ayala DO 04/11/2024 09:41 AM [facility]
[2024-04-11] MEDS: Sodium Bicarbonate 8.4% 50 MEQ/50 ML VIAL SUBCUT (08:59)
[2024-04-11] MEDS: Lidocaine HCl 1 % 20 ML VIAL 9 ML SUBCUT (09:00)
== END 2024-04-11 08:07 | disposition home or self-care (01) ==
LOC: HO.MAMMO 08:06
PROVIDERS: PCP Family Medicine; Visit Provider Surgery
DX: N63.11 Unspecified lump in the right breast, upper outer quadrant (principal); N60.21 Fibroadenosis of right breast
CPT/HCPCS: 19083; 77061; 77065; 88305; A4648; J2003

== ENCOUNTER 2024-04-20 07:49 | Outpatient (AMB) | payer OTHER, SELFPAY ==
[2024-04-20 08:07] VITALS: BP 118/74; BMI 31.7
--- NOTE | 2024-04-20 08:07 | A.OFFVIS_ITS ---
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 Excessive loud snoring and always tired/sleepy(while driving) Allergies acetaminophen [From Percocet] Adverse Reaction (Mild, Verified 04/20/24 08:11) Stomach Upset codeine Adverse Reaction (Mild, Verified 04/20/24 08:11) Stomach Upset oxycodone [From Percocet] Adverse Reaction (Mild, Verified 04/20/24 08:11) Stomach Upset HPI Comments Details: 53 year old female presents for a sleep evaluation per her PCP. She snores like a bear, chokes and gasps for air, falls asleep easily and anywhere even in traffic. She works 12 hour nights on the third shift in [employer]. She had a Thyroidectomy in 2009 and is on levothyroxine 150mcg, also followed by endocrine every 3 months for nodules. She has headaches 2x a month, which last 1-2 hours, r. sided temporal to occipital and migrating then she vomits and feels better. She has photophobia, with r. eye pain, dizziness, vertigo, denies phonophobia and balance difficulties, she takes ibuprofen 800mg and it goes away. In 1992 she had a cholecystectomy, and has chronic constipation, she takes miralax daily and dulcolax every 3 days which helps with a BM daily. She has mood swings feels irritable and short tempered with people. Her STM is poor she recently forgot her purse at [facility], and loses her train of thought in conversations. Her hearing is muffled, she has a f/u for hearing with audiology, she reports clear liquid coming out of the ear, at night denies pain. 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 She drinks occasionally, does not smoke, and takes the following supplements: Vitamin D, B12, Ashwaganda, [place]a, Fish oil for omegas, magnesium glycinate. [facility] Medical History Breast mass, right Surgical History Hx of cholecystectomy FH: thyroid cancer H/O left inguinal hernia repair Family History Father HTN (hypertension) Diabetes Mother Diabetes Hypothyroidism Brother No problems noted. Sister No problems noted. Son No problems noted. Son No problems noted. Daughter No problems noted. Daughter No problems noted. Daughter No problems noted. Paternal Grandmother Breast cancer Paternal Grandfather Colon cancer Social History Household Members: Family Household Members Other:: , 6 children Housing: Apartment Alcohol intake: never Patient Tobacco Use Status: Never used Tobacco e-Cigarette/Vaping Use: Never Used Second Hand Smoke Exposure: No service: No Current occupational status: employed Current occupation: [employer] in [employer] Current occupational exposures/hazards: No Cognitive needs: No Hearing needs: No Vision needs: No Female Reproductive History Menstrual Age of Menarche: 15 Physical Exam Vital Signs: Last Vital Signs BP 118/74 04/20/24 08:07 BMI result Body Mass Index 31.7 Const General: cooperative, comfortable and no acute distress Nutritional Appearance: average body habitus Orientation/consciousness: patient oriented x3 HEENT Face and sinus: Yes normal facial exam and Yes face symmetric Teeth and gingiva: other ([place] score of 3) Eyes Pupils: Equal, round and reactive pupils present Neck Neck: Yes full ROM Resp Effort & Inspection: normal respiratory effort and able to speak in complete sentences Neuro General: patient oriented x3 and moves all extremities Cranial nerves: Yes Facial sensation intact/muscles of mastication intact, Yes Equal, round and reactive pupils present, Yes Normal accommodation reflex present, Yes Bilaterally intact EOM present, Yes Normal facial strength present, Yes Midline tongue present, Yes Ability to bilaterally rotate head present and Yes Ability to bilaterally elevate shoulders present Gait exam (Neuro): Normal gait present Motor exam (neuro): 5/5 motor strength present throughout and Normal motor muscle tone present throughout Deep tendon reflexes (DTR's): Right triceps reflex intensity grade: 2+, Left triceps reflex intensity grade: 2+, Rt Biceps (C5, C6): 2+, Left biceps reflex intensity grade: 2+, Right brachioradialis reflex intensity grade: 2+, Left brachioradialis reflex intensity grade: 2+, Right patellar reflex intensity grade: 2+ and Left patellar reflex intensity grade: 2+ Psych Appearance: grossly normal Thought process: Normal thought process present Thought content: Normal thought content present Assessment & Plan Assessment & Plan (1) Bilateral headaches: Code(s): R51.9 - Headache, unspecified Category: Medical (2) Fatigue due to sleep pattern disturbance: Code(s): R53.83 - Other fatigue; G47.9 - Sleep disorder, unspecified Category: Medical (3) Irritable mood: Code(s): R45.4 - Irritability and anger Category: Medical (4) Fatigue due to sleep pattern disturbance: Code(s): R53.83 - Other fatigue; G47.9 - Sleep disorder, unspecified Category: Medical Plan HST to evaluate Sleep Apnea Labs to r/o deficiencies. Life style changes recommended. Orders: Orders RT home sleep study Today G47.19 - Other hypersomnia Complete Blood Count no Diff Today G47.9 - Sleep disorder, unspecified, R53.83 - Other fatigue Comprehensive Met. Panel Today G47.9 - Sleep disorder, unspecified, R53.83 - Other fatigue Ferritin Today G47.9 - Sleep disorder, unspecified, R53.83 - Other fatigue IRON PROFILE Today G47.9 - Sleep disorder, unspecified, R53.83 - Other fatigue Homocysteine Today G47.9 - Sleep disorder, unspecified, R53.83 - Other fatigue Methylmalonic Acid Today G47.9 - Sleep disorder, unspecified, R53.83 - Other fatigue Lipid Panel with Reflex Today G47.9 - Sleep disorder, unspecified, R53.83 - Other fatigue TSH reflex Free T4 Today F09 - Unspecified mental disorder due to known physiological condition Hemoglobin A1c Today G47.9 - Sleep disorder, unspecified, R53.83 - Other fatigue Vitamin D 25-OH Total Today R45.4 - Irritability and anger Vitamin B12 and Folate Today G47.9 - Sleep disorder, unspecified, R53.83 - Other fatigue Medications: New sumatriptan succinate take 1 tab at onset of headache; if no relief may repeat 1 tab after at least 2 hrs; max = 4 tabs/24 hr PO 10 tabs 1RF headaches MDD 100mg R51.9 - Headache, unspecified Patient Instructions: Sleep difficulties, sleep in a dark environment, temperatures below 68 degrees, and no devices in bed. Limit fluids 2 hours prior to bed time. Eliminate stressors if possible with changing work schedule to daytime schedule if possible. Sleep for a total of 6-8 hours. Shared decision making with family in critical care specialist burden tasks with your dad and Alzheimers. Headaches monitor on migraine- vaishali or keep journal of # of headaches per month and severity/intensity of headaches, use a migraine cap, and essential oils such as peppermint on the spiritism to alleviate headaches and limit stress. Sumatriptan 25mg PO at onset, may repeat in 2 hours for a total of 100mg PO daily in a 24 hour period. Anxiety, go to the gym, diffuse essential oils. Coding Level of Care Code New Pt Level 4 (91333) Diagnoses Bilateral headaches R51.9 Fatigue due to sleep pattern disturbance R53.83; G47.9 Irritable mood R45.4 Time Spent (min) 40 Comment Evaluation of Sleep disorder Sleep Questionnaire Difficulty falling asleep: Yes Difficulty staying asleep?: Yes Snoring: Yes Witnessed apneas: Yes Gasping arousals: Yes Nocturia: No GERD: Yes Acting out dreams: No Abnormal behavior in sleep: No Abnormal movements in sleep: No Morning headaches: No Excessive daytime sleepiness: Yes Daytime naps: Yes Restless legs: No Hallucinations: No Sleep paralysis: No Drop attacks: No Sleep Study: No CPAP: No
== END 2024-04-20 09:08 | disposition home or self-care (01) ==
LOC: HO.HSMS 07:50
PROVIDERS: PCP Family Medicine; Visit Provider Physician Assistant Medical
DX: R51.9 Headache, unspecified (principal); R53.83 Other fatigue; G47.9 Sleep disorder, unspecified; R45.4 Irritability and anger
CPT/HCPCS: 99204

== ENCOUNTER 2024-04-20 10:32 | Outpatient (REF) | payer OTHER, SELFPAY ==
[2024-04-20 14:59] LABS: Hematocrit 42.6 % (37.0-47.0); Hemoglobin 13.6 g/dl (12.0-16.0); Mean Corpuscular HGB Conc 31.9 g/dl (31.0-35.0); Mean Corpuscular Hemoglobin 30.2 pg (27.0-33.0); Mean Corpuscular Volume 94.5 fL (80.0-98.0); Mean Platelet Volume 9.5 fL (9.4-12.3); Platelet Count 407 X10*3/uL (160-400); Red Blood Count 4.51 X10*6/uL (4.20-5.50); Red Cell Distribution Width 13.3 % (11.0-16.0); White Blood Count 6.8 X10*3/uL (4.8-10.8)
[2024-04-20 15:06] LABS: Estimated Average Glucose 114 mg/dL; Hemoglobin A1c % 5.6 % (<6.0)
[2024-04-20 15:13] LABS: Cholesterol 147 mg/dL (<200); HDL Cholesterol 55 mg/dL (>40); LDL Cholesterol Calculated 77 mg/dL (<100); Triglycerides 79 mg/dL (<150)
[2024-04-20 15:28] LABS: Ferritin 78 ng/mL (10-250); TSH reflex Free T4 0.11 uIU/mL (0.32-4.0); Vitamin D 25-OH Total 70.6 ng/mL (>30)
[2024-04-20 15:37] LABS: Folate 15.6 ng/mL (> or = 4.0); Vitamin B12 669 pg/mL (200-900)
[2024-04-20 17:29] LABS: Alanine Aminotransferase 21 U/L (0-31); Albumin Level 4.4 g/dL (3.5-5.0); Alkaline Phosphatase 57 U/L (39-117); Anion Gap 11 (12-20); Aspartate Amino Transferase 20 U/L (5-31); Bilirubin Total 0.3 mg/dL (0.0-1.0); Blood Urea Nitrogen 19 mg/dL (9-16); Calcium 9.3 mg/dL (8.4-10.2); Carbon Dioxide 26 mmol/L (22-29); Chloride 107 mmol/L (96-108); Estimated Glomerular Filt Rate > 60; Free T4 (Free Thyroxine) 1.27 ng/dL (0.71-1.85); Glucose Random 90 mg/dL (60-115); Iron 48 mcg/dL (30-160); Percent Iron Saturation 17 % (15-50); Sodium 140 mmol/L (135-145); Total Iron Binding Capacity 285 mcg/dL (228-428); Total Protein 8.3 g/dL (6.5-8.0); Unsaturated Iron Binding 237 ug/dL
[2024-04-20 18:51] LABS: Reflex LDLD? No
[2024-04-21 06:48] LABS: Triiodothyronine T3 Total 124 ng/dL (76-181)
[2024-04-25 12:58] LABS: Methylmalonic Acid 215 nmol/L (55-335)
== END 2024-04-20 10:33 | disposition home or self-care (01) ==
LOC: HO.WFDLDS 10:32
PROVIDERS: Physician Assistant Medical; Visit Provider Family Medicine
DX: E03.9 Hypothyroidism, unspecified (principal); R74.01 Elevation of levels of liver transaminase levels; R53.83 Other fatigue; G47.9 Sleep disorder, unspecified; F09 Unspecified mental disorder due to known physiological condition; R45.4 Irritability and anger; Z13.1 Encounter for screening for diabetes mellitus
CPT/HCPCS: 36415; 80053; 80061; 82306; 82607; 82728; 82746; 83036; 83540; 83921; 84439; 84443; 84480; 85027

== ENCOUNTER 2024-04-24 10:29 | Outpatient (AMB) | payer OTHER, SELFPAY ==
--- NOTE | 2024-04-24 10:37 | A.OFFPC_ITS ---
Vital Signs 04/24/24 10:41 Height 5 ft 2 in Weight 171 lb 8 oz BMI 31.4 BP 120/70 Blood Pressure Location Rt brachial Position Sitting Respiration 12 Pulse 71 Pulse Source Pulse Oximeter Temp 98.7 F Temp Source Oral Pulse Oximetry (%) 98 Oxygen Delivery Method Room Air Intake Visit Reasons: f/u anxiety/depression Intake Note: Patient schedule for anxiety and depression Banana Loader Required: No Allergies acetaminophen [From Percocet] Adverse Reaction (Mild, Verified 04/24/24 10:40) Stomach Upset codeine Adverse Reaction (Mild, Verified 04/24/24 10:40) Stomach Upset oxycodone [From Percocet] Adverse Reaction (Mild, Verified 04/24/24 10:40) Stomach Upset Medication List - Last Reconciled 04/24/24 by Kyler Prescott MD bisacodyl (Dulcolax (bisacodyl)) 10 mg (2 x 5 mg) PO BEDTIME cetirizine 10 mg PO DAILY ibuprofen 800 mg PO Q8H levonorgestrel (Mirena) intrauterine levothyroxine mcg PO minoxidil 2% (Hair Regrowth Treatment) 1 mL topical BID omeprazole 40 mg (2 x 20 mg) PO DAILY 30 days polyethylene glycol 3350 (Miralax) 238 grams PO ONCE PRN 1 day polyethylene glycol 3350 (Miralax) 17 grams PO DAILY PRN polyethylene glycol 3350 (Miralax) 238 grams PO ONCE 1 day sumatriptan succinate take 1 tab at onset of headache; if no relief may repeat 1 tab after at least 2 hrs; max = 4 tabs/24 hr PO MDD 100mg tirzepatide (weight loss) (Zepbound) 2.5 mg (0.5 mL) subcut QWEEK 28 days tizanidine 4 mg (2 x 2 mg) PO BEDTIME PRN Tobacco use date assessed: 01/16/24 Dental Screening Dental Screen Date: 01/16/24 HPI f/u anxiety/depression HPI Details 53 y/o female presents to f/u anxiety/de pression. PHQ-9 8, MICKEY-7 9 today. She notes recent stressors. Also f/u liver enzymes, thyroid levels. Labs drawn 04/20/24. Reviewed labs with pt. A1c 5.6%. Triglycerides 79. TC 147. LDL 77. HDL 55. TSH 0.11. Free T4 1.27. Total T3 124. AST 20, ALT 21. PFSH Medical History Breast mass, right Surgical History Hx of cholecystectomy FH: thyroid cancer H/O left inguinal hernia repair Family History Father HTN (hypertension) Diabetes Mother Diabetes Hypothyroidism Brother No problems noted. Sister No problems noted. Son No problems noted. Son No problems noted. Daughter No problems noted. Daughter No problems noted. Daughter No problems noted. Paternal Grandmother Breast cancer Paternal Grandfather Colon cancer Social History Household Members: Family Household Members Other:: , 6 children Housing: Apartment Alcohol intake: never Patient Tobacco Use Status: Never used Tobacco e-Cigarette/Vaping Use: Never Used Second Hand Smoke Exposure: No service: No Current occupational status: employed Current occupation: [employer] in [employer] Current occupational exposures/hazards: No Cognitive needs: No Hearing needs: No Vision needs: No Female Reproductive History Menstrual Age of Menarche: 15 Questionnaire PHQ-9 Over the last 2 weeks, how often have you been bothered by any of the following problems? 1. Little interest or pleasure in doing things: several days 2. Feeling down, depressed, or hopeless: several days 3. Trouble falling or staying asleep, or sleeping too much: several days 4. Feeling tired or having little energy: more than half the days 5. Poor appetite or overeating: several days 6. Feeling bad about yourself - or that you are a failure or have let yourself or your family down: several days 7. Trouble concentrating on things, such as reading the newspaper or watching television: several days 8. Moving or speaking so slowly that other people could have noticed. Or the opposite - being so fidgety or restless that you have been moving around a lot more than usual: not at all 9. Thoughts that you would be better off or of hurting yourself in some way: not at all Total score: 8 Depression Screening Interpretation: Positive Depression Screening Done: Yes 10958 - PHQ-9 Billing: Yes Source: Developed by Drs. Rufus Reyna, Luis Salgado and colleagues, with an educational molly from [employer]. Thrive Questionnaire Date Thrive assessed: 04/24/24 I am a: Patient What is your living situation today?: I have a steady place to live Within the past 12 months, did the food you bought not last and you didn't have the money to get more?: Never true Within the past 12 months, did you worry whether your food would run out before you got money to buy more?: Never true Do you have trouble paying for medicines?: No Do you have trouble getting transportation to medical appointments?: No Do you have trouble paying your heating and electricity bill?: No Do you have trouble taking care of your child, family member or friend?: No Do you have trouble with day-to-day activities such as bathing, preparing meals, shopping, managing finances, etc.?: No Are you currently unemployed and looking for a job?: No Are you interested in more education?: No Please select the resources that you would like help with: None Currently or been in a relationship where the following occur: I choose not to answer THRIVE Score: 0 AUDIT C Alcohol Use Questionnaire (AUDIT-C) 1. How often do you have a drink containing alcohol?: Never 3. How often do you have six or more drinks on one occasion?: Never Total Score: 0 Score Reviewed/Action Taken: Yes MICKEY-7 AMB Questionnaire MICKEY-7 Date MICKEY - 7 assessed: 04/24/24 Feeling nervous, anxious, or on edge: 1 = Several days Not being able to stop or control worryin = Several days Worrying too much about different things: 2 = More than half the days Trouble relaxin = Several days Being so restless that it is hard to sit still: 1 = Several days Becoming easily annoyed or irritable: 2 = More than half the days Feeling afraid as if something awful might happen: 1 = Several days Total MICKEY-7 score (0-4 normal; 5-9 mild; 10-14 moderate; 15-21 severe): 9 Source: Developed by Mandie Tate Kurt Kroenke and colleagues, with an educational molly from [employer]. MICKEY-7 Assessment Billing MICKEY-7 Assessment Tool: MICKEY-7 Assessment 61443 Review of Systems Const Denies chills, Denies fatigue, Denies fever(s), Denies headache(s) and Denies weakness ENT Denies dizziness and Denies headache(s) Card Denies dyspnea Resp Denies cough, Denies dyspnea, Denies wheezing and Denies other (shortness of breath) Musc Denies numbness and Denies tingling Neuro Denies dizziness, Denies headache(s), Denies numbness, Denies tingling and Denies weakness Psych Reports anxiety and Reports depression Endo Denies fatigue Aller/Immun Denies wheezing Physical exam (Primary Care) Vital Signs: Last Vital Signs Temp 98.7 F 04/24/24 10:41 Pulse 71 04/24/24 10:41 Resp 12 04/24/24 10:41 BP 120/70 04/24/24 10:41 Pulse Ox 98 04/24/24 10:41 Oxygen Delivery Method Room Air 04/24/24 10:41 BMI result Body Mass Index 31.4 Tobacco/Smoking Status: Tobacco use Status Tobacco use date assessed 01/16/24 04/24/24 10:46 Patient Tobacco Use Status Never used Tobacco 04/24/24 10:46 e-Cigarette/Vaping Use Never Used 04/24/24 10:46 PHQ-9: PHQ-9 Score PHQ-9: Total score 8 04/24/24 10:58 Depression Screening Interpretation: Positive Thrive Assessment: Date of Thrive Assessment Date Thrive assessed 04/24/24 04/24/24 10:46 Currently or been in a relationship where the following occur: I choose not to answer Const General: well developed; No acute distress Nutritional Appearance: well nourished Orientation/consciousness: patient oriented x3 HENMT Head: Yes normocephalic and Yes atraumatic Eyes General: appearance normal, both eyes and all related structures Pupils: Equal, round and reactive pupils present EOM: EOMs intact bilaterally Resp Effort & Inspection: normal respiratory effort Neuro General: patient oriented x3 and gait normal Cranial nerves: Yes Equal, round and reactive pupils present Psych Affect: normal affect Coding Level of Care Code Est Pt Level 4 (40530) Diagnoses Anxiety with depression F41.8 Hypothyroidism E03.9 Elevated alanine aminotransferase (ALT) level R74.01 Sleep apnea G47.30 Additional Codes MICKEY-7 Assessment Billing - MICKEY-7 Assessment Tool: MICKEY-7 Assessment 41964 ([id number]) PHQ-9 - 98160 - PHQ-9 Billing: Yes ([id number]) Assessment & Plan Assessment & Plan (1) Anxiety with depression: Code(s): F41.8 - Other specified anxiety disorders Category: Medical Plan: Ongoing?anxiety?and?depression?with?increased?stressors. She?says?that?she?has?tried?medications?but?did?not?want?to?take?them. We?discussed?a?referral?to?therapist?today?in?she?agrees?to?this Will?ask?the?nurse?navigator?to?connect?her?with?a?therapist (2) Hypothyroidism: Code(s): E03.9 - Hypothyroidism, unspecified Category: Medical Plan: Patien t's?TSH?is?somewhat?suppressed?though?her?T4?and?T3?are?within?normal?range. She?has?an?physical therapist clinic director?and?patient?shows?me?that?physical therapist clinic director?lab?work?is ?measuring?her?TSH?within?limits No?changes?to?her?medication?regimen?today.??She?can?follow- up?with?her?physical therapist clinic director (3) Elevated alanine aminotransferase (ALT) level: Code(s): R74.01 - Elevation of levels of liver transaminase levels Category: Medical Plan: Liver?enzymes?have?been?mildly?elevated?but?are?no?back?range Resolved (4) Sleep apnea: Code(s): G47.30 - Sleep apnea, unspecified Category: Medical Plan: Patient?has?a?sleep?study?ordered Follow-up?with?sleep?medicine?as?recommended Orders: Referrals Nurse Navigator Referral F41.8 - Other specified anxiety disorders
[2024-04-24 10:41] VITALS: BP 120/70; PULSE 71; RESP 12; TEMP 37.1; O2SAT 98; BMI 31.4
== END 2024-04-24 11:25 | disposition home or self-care (01) ==
LOC: HO.HMCFM 10:29
PROVIDERS: PCP Family Medicine; Visit Provider Family Medicine
DX: F41.8 Other specified anxiety disorders (principal); E03.9 Hypothyroidism, unspecified; R74.01 Elevation of levels of liver transaminase levels; G47.30 Sleep apnea, unspecified

== ENCOUNTER → 2024-04-24 10:29 | Outpatient (BNVA) | payer OTHER, SELFPAY | PROVIDERS: PCP Family Medicine; Visit Provider Family Medicine | DX: F41.8 Other specified anxiety disorders (principal); E03.9 Hypothyroidism, unspecified; R74.01 Elevation of levels of liver transaminase levels; G47.30 Sleep apnea, unspecified | CPT/HCPCS: 96127 ==

== ENCOUNTER → 2024-07-03 09:57 | Outpatient (REF) | payer OTHER, SELFPAY | LOC: HO.SL 09:57 | PROVIDERS: PCP Family Medicine; Visit Provider Physician Assistant Medical | DX: G47.19 Other hypersomnia (principal) | CPT/HCPCS: 95806 ==

== ENCOUNTER 2024-07-30 11:40 | Outpatient (AMB) | payer OTHER, SELFPAY ==
--- NOTE | 2024-07-30 11:46 | A.OFFPC_ITS ---
Vital Signs 07/30/24 11:56 Height 5 ft 2 in Weight 172 lb 6 oz BMI 31.5 BP 110/69 Blood Pressure Location Rt brachial Position Sitting Respiration 16 Pulse 83 Pulse Source Pulse Oximeter Temp 98.2 F Temp Source Oral Pulse Oximetry (%) 100 Oxygen Delivery Method Room Air Intake Visit Reasons: f/u anxiety/depression Intake Note: patient is scheduled to follow up for anxiety and depression. 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 Allergies codeine Adverse Reaction (Mild, Verified 04/24/24 10:40) Stomach Upset oxycodone (From Percocet) Adverse Reaction (Mild, Verified 04/24/24 10:40) Stomach Upset Medication List - Last Reconciled 07/30/24 by Kyler Prescott MD bisacodyl (Dulcolax (bisacodyl)) 10 mg (2 x 5 mg) PO BEDTIME cetirizine 10 mg PO DAILY ibuprofen 800 mg PO Q8H levonorgestrel (Mirena) intrauterine levothyroxine 150 mcg PO DAILY minoxidil 2% (Hair Regrowth Treatment) 1 mL topical BID omeprazole 40 mg (2 x 20 mg) PO DAILY 30 days polyethylene glycol 3350 (Miralax) 238 grams PO ONCE PRN 1 day polyethylene glycol 3350 (Miralax) 17 grams PO DAILY PRN polyethylene glycol 3350 (Miralax) 238 grams PO ONCE 1 day sumatriptan succinate take 1 tab at onset of headache; if no relief may repeat 1 tab after at least 2 hrs; max = 4 tabs/24 hr PO MDD 100mg tirzepatide (weight loss) (Zepbound) 2.5 mg (0.5 mL) subcut QWEEK 28 days tizanidine 4 mg (2 x 2 mg) PO BEDTIME PRN Tobacco use date assessed: 01/16/24 Dental Screening Dental Screen Date: 01/16/24 HPI f/u anxiety/depression HPI Details 53 y/o female presents to f/u anxiety/de pression. Had referred her for a therapist. Has tried medications in the past and did not want to continue them. PHQ-9 5, MICKEY-7 9 today. Reports ?hip pain. Has not been using anything for the pain. HPI Comments History of Present Illness Details Documentation assistance for Kyler Prescott MD, was provided by Rex Llenardo Gray,? Broadcast Engineer on 07/30/2024 at 12:05 PM EST. [place], Dr. Prescott, have read, observed, and verified documentation. [facility] Medical History (Updated 07/30/24 @ 12:11 by Rex Gray) Thyroid cancer Hypothyroid GERD (gastroesophageal reflux disease) Varicose vein of leg Pulmonary nodule BREANNA (obstructive sleep apnea) Frequent headaches Anxiety Murmur Depression Breast mass, right Surgical History (Updated 05/15/24 @ 09:14 by Ana Cueto RN) History of esophagogastroduodenoscopy (EGD) H/O colonoscopy Hx of cholecystectomy H/O left inguinal hernia repair Family History Father HTN (hypertension) Diabetes Mother Diabetes Hypothyroidism Brother No problems noted. Sister No problems noted. Son No problems noted. Son No problems noted. Daughter No problems noted. Daughter No problems noted. Daughter No problems noted. Paternal Grandmother Breast cancer Paternal Grandfather Colon cancer Social History Household Members: Family Household Members Other:: , 6 children Housing: Apartment Alcohol intake: never Patient Tobacco Use Status: Never used Tobacco e-Cigarette/Vaping Use: Never Used Second Hand Smoke Exposure: No service: No Current occupational status: employed Current occupation: [employer] in [place] Current occupational exposures/hazards: No Cognitive needs: No Hearing needs: No Vision needs: No Female Reproductive History Menstrual Age of Menarche: 15 Questionnaire PHQ-9 Over the last 2 weeks, how often have you been bothered by any of the following problems? 1. Little interest or pleasure in doing things: not at all 2. Feeling down, depressed, or hopeless: several days 3. Trouble falling or staying asleep, or sleeping too much: nearly every day 4. Feeling tired or having little energy: not at all 5. Poor appetite or overeating: not at all 6. Feeling bad about yourself - or that you are a failure or have let yourself or your family down: several days 7. Trouble concentrating on things, such as reading the newspaper or watching television: not at all 8. Moving or speaking so slowly that other people could have noticed. Or the opposite - being so fidgety or restless that you have been moving around a lot more than usual: not at all 9. Thoughts that you would be better off or of hurting yourself in some way: not at all Total score: 5 Depression Screening Interpretation: Positive Depression Screening Done: Yes 07335 - PHQ-9 Billing: Yes Source: Developed by Drs. Rufus Reyna, Mandie Nix, Luis Fernández and colleagues, with an educational molly from [employer]. Thrive Questionnaire Date Thrive assessed: 04/24/24 I am a: Patient What is your living situation today?: I have a steady place to live Within the past 12 months, did the food you bought not last and you didn't have the money to get more?: Never true Within the past 12 months, did you worry whether your food would run out before you got money to buy more?: Never true Do you have trouble paying for medicines?: No Do you have trouble getting transportation to medical appointments?: No Do you have trouble paying your heating and electricity bill?: No Do you have trouble taking care of your child, family member or friend?: No Do you have trouble with day-to-day activities such as bathing, preparing meals, shopping, managing finances, etc.?: No Are you currently unemployed and looking for a job?: No Are you interested in more education?: No Please select the resources that you would like help with: None Currently or been in a relationship where the following occur: I choose not to answer THRIVE Score: 0 AUDIT C Alcohol Use Questionnaire (AUDIT-C) 2. How many drinks containing alcohol do you have on a typical day when you are drinking?: 1 or 2 3. How often do you have six or more drinks on one occasion?: Never Total Score: 0 MICKEY-7 AMB Questionnaire MICKEY-7 Date MICKEY - 7 assessed: 07/30/24 Feeling nervous, anxious, or on edge: 2 = More than half the days Not being able to stop or control worryin = Several days Worrying too much about different things: 1 = Several days Trouble relaxin = Several days Being so restless that it is hard to sit still: 1 = Several days Becoming easily annoyed or irritable: 3 = Nearly every day Feeling afraid as if something awful might happen: 0 = Not at all Total MICKEY-7 score (0-4 normal; 5-9 mild; 10-14 moderate; 15-21 severe): 9 Source: Developed by Drs. Rufus Reyna, Mandie Nix, Luis Fernández and colleagues, with an educational molly from [employer]. MICKEY-7 Assessment Billing MICKEY-7 Assessment Tool: MICKEY-7 Assessment 16242 Review of Systems Const Denies chills, Denies fatigue, Denies fever(s), Denies headache(s) and Denies weakness ENT Denies dizziness and Denies headache(s) Card Denies dyspnea Resp Denies cough, Denies dyspnea, Denies wheezing and Denies other (shortness of breath) Musc Details: Hip pain Denies numbness and Denies tingling Neuro Denies dizziness, Denies headache(s), Denies numbness, Denies tingling and [place] es weakness Psych Reports anxiety and Reports depression Endo Denies fatigue Aller/Immun Denies wheezing Physical exam (Primary Care) Vital Signs: Last Vital Signs Temp 98.2 F 07/30/24 11:56 Pulse 83 07/30/24 11:56 Resp 16 07/30/24 11:56 BP 110/69 07/30/24 11:56 Pulse Ox 100 07/30/24 11:56 Oxygen Delivery Method Room Air 07/30/24 11:56 BMI result Body Mass Index 31.5 Tobacco/Smoking Status: Tobacco use Status Tobacco use date assessed 01/16/24 07/30/24 12:02 Patient Tobacco Use Status Never used Tobacco 07/30/24 12:02 e-Cigarette/Vaping Use Never Used 07/30/24 12:02 PHQ-9: PHQ-9 Score PHQ-9: Total score 5 07/30/24 12:06 Depression Screening Interpretation: Positive Thrive Assessment: Date of Thrive Assessment Date Thrive assessed 04/24/24 07/30/24 12:02 Currently or been in a relationship where the following occur: I choose not to answer Const General: well developed; No acute distress Nutritional Appearance: well nourished Orientation/consciousness: patient oriented x3 HENMT Head: Yes normocephalic and Yes atraumatic Eyes General: appearance normal, both eyes and all related structures Pupils: Equal, round and reactive pupils present EOM: EOMs intact bilaterally Resp Effort & Inspection: normal respiratory effort Neuro General: patient oriented x3 and gait normal Cranial nerves: Yes Equal, round and reactive pupils present Psych Affect: normal affect Coding Level of Care Code Est Pt Level 3 (21883) Diagnoses Anxiety with depression F41.8 Hip pain M25.559 Additional Codes MICKEY-7 Assessment Billing - MICKEY-7 Assessment Tool: MICKEY-7 Assessment 15375 ([id number]) PHQ-9 - 47077 - PHQ-9 Billing: Yes ([id number]) Assessment & Plan Assessment & Plan (1) Anxiety with depression: Code(s): F41.8 - Other specified anxiety disorders Category: Medical Plan: Patient?was?referred?to?the?nurse?navigator?to?connect?her?with?a?therapist She?is?on?a?waiting?list?but?says?she?will?call?to?follow-up?and?get?scheduled Briefly?discussed?medication?again?and?she?declines (2) Hip pain: Code(s): M25.559 - Pain in unspecified hip Category: Medical Plan: Right?lateral?hip?pain Likely bursitis?or?tendonitis Start?physical?therapy Ice/heat Relative?rest Will?give?her?a?script?for?meloxicam Orders: Orders PT Evaluation and Treatment Today M25.559 - Pain in unspecified hip Medications: New meloxicam 15 mg PO DAILY 30 tabs 2RF 30 days Discontinued ibuprofen Discontinued Reason: Doctor's Order 800 mg PO Q8H 90 tabs 3RF
[2024-07-30 11:56] VITALS: BP 110/69; PULSE 83; RESP 16; TEMP 36.8; O2SAT 100; BMI 31.5
== END 2024-07-30 12:18 | disposition home or self-care (01) ==
LOC: HO.HMCFM 11:41
PROVIDERS: PCP Family Medicine; Visit Provider Family Medicine
DX: F41.8 Other specified anxiety disorders (principal); M25.559 Pain in unspecified hip

== ENCOUNTER → 2024-07-30 11:40 | Outpatient (BNVA) | payer OTHER, SELFPAY | PROVIDERS: PCP Family Medicine; Visit Provider Family Medicine | DX: F41.9 Anxiety disorder, unspecified (principal); F32.A Depression, unspecified; F41.8 Other specified anxiety disorders; M25.559 Pain in unspecified hip | CPT/HCPCS: 96127 ==

== ENCOUNTER 2025-01-07 10:56 | Outpatient (REF) | payer OTHER, SELFPAY ==
--- NOTE | ~2025-01-07 | XR_ITS ---
EXAMINATION: XR SHOULDER, LEFT CLINICAL INFORMATION: M25.512 - Pain in left shoulder COMPARISON: Correlated to chest x-ray dated November 02, 2017. TECHNIQUE: AP external rotation, Grashey, scapular Y, and axillary views of the left shoulder. FINDINGS: No acute cortical disruption or malalignment. No lytic or blastic lesions. No soft tissue calcifications. No metallic or radiopaque foreign body. XR/XR shoulder LT min 2V IMPRESSION: No acute fracture or dislocation. No gross degenerative changes. Negative x-ray. Electronically signed by: Khris Ricks MD 01/07/2025 11:31 AM NATTY ROSA
== END 2025-01-07 10:57 | disposition home or self-care (01) ==
LOC: HO.XRAY 10:56
PROVIDERS: PCP Family Medicine; Visit Provider Family Medicine
DX: M25.512 Pain in left shoulder (principal)
CPT/HCPCS: 73030

== ENCOUNTER → 2025-01-07 11:03 | Outpatient (BNV) | payer OTHER, SELFPAY | PROVIDERS: PCP Family Medicine; Visit Provider Radiology Diagnostic Radiology | DX: M25.512 Pain in left shoulder (principal) | CPT/HCPCS: 73030 ==

== ENCOUNTER → 2025-01-23 09:45 | Outpatient (BNV) | payer OTHER, SELFPAY | PROVIDERS: PCP Family Medicine; Visit Provider Radiology Body Imaging | DX: Z12.31 Encounter for screening mammogram for malignant neoplasm of breast (principal) | CPT/HCPCS: 77063; 77067 ==

== ENCOUNTER 2025-01-23 09:52 | Outpatient (REF) | payer OTHER, SELFPAY | END 2025-01-23 09:53 | disposition home or self-care (01) | LOC: HO.MAMMO 09:52 | PROVIDERS: PCP Family Medicine; Visit Provider Family Medicine | DX: Z12.31 Encounter for screening mammogram for malignant neoplasm of breast (principal) | CPT/HCPCS: 77063; 77067 ==

== ENCOUNTER 2025-01-24 13:59 | Outpatient (AMB) | payer OTHER, SELFPAY ==
--- NOTE | 2025-01-24 14:07 | A.OFFVIS_ITS ---
Vital Signs 01/24/25 14:10 Height 5 ft 2 in Weight 177 lb 8 oz BMI 32.5 BP 124/80 Blood Pressure Location Rt brachial Position Sitting Pulse 91 Pulse Source Pulse Oximeter Pulse Oximetry (%) 97 Oxygen Delivery Method Room Air Intake Visit Reasons: f/u Intake Note: Patient presents follow up BREANNA medication. Labs/HST/Compliance in chart(AHI-7, BULMARO-84%(5/7days, >=4hrs-57%, Average Usage-4hrs 1min, Med Pressure-8.1, Med Leaks-0.0, AHI-1.6)). Allergies codeine Adverse Reaction (Mild, Verified 01/24/25 14:14) Stomach Upset oxycodone (From Percocet) Adverse Reaction (Mild, Verified 01/24/25 14:14) Stomach Upset HPI Comments Details: 54 year old female presents for a f/u of mild sleep apnea. HST is c/w mild breanna AHI-7, oxygen nadirs to 84%, she started use 5 days ago and feels comfortable with her machine. 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 Still has multiple obligations due to caring for her father with AD. She had a Thyroidectomy in 2009 and is on levothyroxine 150mcg, also followed by endocrine every 3 months for nodules. She has headaches, though now improved, unilateral r. sided temporal to occipital and migrating then she vomits and feels better. She has photophobia, with r. eye pain, dizziness, vertigo, denies phonophobia an d balance difficulties, she takes ibuprofen 800mg She has mood swings feels irritable and short tempered with people due to vasomotor symptoms. Her STM is poor she recently forgot her purse at [facility], and loses her train of thought in conversations and when multitasking. Her hearing is muffled, she has a f/u for hearing with audiology, she reports clear liquid coming out of the ear, at night denies pain, has a f/u with audiology. She drinks occasionally, does not smoke, and takes the otc supplements. [facility] Medical History Thyroid cancer Hypothyroid GERD (gastroesophageal reflux disease) Varicose vein of leg Pulmonary nodule BREANNA (obstructive sleep apnea) Frequent headaches Anxiety Murmur Depression Breast mass, right Surgical History History of esophagogastroduodenoscopy (EGD) H/O colonoscopy Hx of cholecystectomy H/O left inguinal hernia repair Family History Father HTN (hypertension) Diabetes Mother Diabetes Hypothyroidism Brother No problems noted. Sister No problems noted. Son No problems noted. Son No problems noted. Daughter No problems noted. Daughter No problems noted. Daughter No problems noted. Paternal Grandmother Breast cancer Paternal Grandfather Colon cancer Social History Household Members: Family Household Members Other:: , 6 children Housing: Apartment Alcohol intake: never Patient Tobacco Use Status: Never used Tobacco e-Cigarette/Vaping Use: Never Used Second Hand Smoke Exposure: No service: No Current occupational status: employed Current occupation: [employer] in [employer] Current occupational exposures/hazards: No Cognitive needs: No Hearing needs: No Vision needs: No Female Reproductive History Menstrual Age of Menarche: 15 Physical Exam Vital Signs: Last Vital Signs Pulse 91 01/24/25 14:10 BP 124/80 01/24/25 14:10 Pulse Ox 97 01/24/25 14:10 Oxygen Delivery Method Room Air 01/24/25 14:10 BMI result Body Mass Index 32.5 Const General: cooperative, comfortable and no acute distress Nutritional Appearance: average body habitus Orientation/consciousness: patient oriented x3 HEENT Face and sinus: Yes normal facial exam and Yes face symmetric Teeth and gingiva: other ([place] score of 3) Eyes Pupils: Equal, round and reactive pupils present Neck Neck: Yes full ROM Resp Effort & Inspection: normal respiratory effort and able to speak in complete sentences Neuro General: patient oriented x3 and moves all extremities Cranial nerves: Yes Facial sensation intact/muscles of mastication intact, Yes Equal, round and reactive pupils present, Yes Normal accommodation reflex present, Yes Bilaterally intact EOM present, Yes Normal facial strength present, Yes Midline tongue present, Yes Ability to bilaterally rotate head present and Yes Ability to bilaterally elevate shoulders present Gait exam (Neuro): Normal gait present Motor exam (neuro): 5/5 motor strength present throughout and Normal motor muscle tone present throughout Deep tendon reflexes (DTR's): Right triceps reflex intensity grade: 2+, Left triceps reflex intensity grade: 2+, Rt Biceps (C5, C6): 2+, Left biceps reflex intensity grade: 2+, Right brachioradialis reflex intensity grade: 2+, Left brachioradialis reflex intensity grade: 2+, Right patellar reflex intensity grade: 2+ and Left patellar reflex intensity grade: 2+ Psych Appearance: grossly normal Thought process: Normal thought process present Thought content: Normal thought content present Results Reviewed Results Reviewed: HST reviewed with pt mild breanna, on cpap therapy. Labs reviwed with pt. Assessment & Plan Assessment & Plan (1) BREANNA on CPAP: Comment: mild breanna Code(s): G47.33 - Obstructive sleep apnea (adult) (pediatric) Category: Medical (2) Fatigue due to sleep pattern disturbance: Code(s): R53.83 - Other fatigue; G47.9 - Sleep disorder, unspecified Category: Medical (3) Bilateral headaches: Comment: now improved will monitor Code(s): R51.9 - Headache, unspecified Category: Medical (4) Irritable mood: Code(s): R45.4 - Irritability and anger Category: Medical (5) Fatigue due to sleep pattern disturbance: Code(s): R53.83 - Other fatigue; G47.9 - Sleep disorder, unspecified Category: Medical Plan HST reviwed with pt. mild breanna and started on therapy with cpap, compliance is reviewed with pt. 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 Headaches, will monitory frequency, severity and duration as symptoms have now improved. Life style changes recommended. F/U in 3 months Patient Instructions: Please complete the following fasting labs to rule out deficiencies. CBC/CMP/ B12/ Vit D/ TSH/ Homocysteine and MMA/ Ferritin. Sleep Hygiene provided: set a scheduled bedtime and wake time to help regulate the circadian rhythm and balance the release of pituitary hormones. Sleep in a dark room, temperatures below 68 degrees, and no devices n bed. Limit caffeinated products 6 hours prior to bed, and limit fluids 2-4 hours prior to bed. Gentle night yoga, diffusing essential oils, and playing soft music can be relaxing. Coding Level of Care Code Est Pt Level 4 (09823) Diagnoses BREANNA on CPAP G47.33 Fatigue due to sleep pattern disturbance R53.83; G47.9 Bilateral headaches R51.9 Irritable mood R45.4
[2025-01-24 14:10] VITALS: BP 124/80; PULSE 91; O2SAT 97; BMI 32.5
== END 2025-01-24 15:40 | disposition home or self-care (01) ==
LOC: HO.HSMS 14:00
PROVIDERS: PCP Family Medicine; Visit Provider Physician Assistant Medical
DX: R53.83 Other fatigue (principal); G47.9 Sleep disorder, unspecified; G47.33 Obstructive sleep apnea (adult) (pediatric); R51.9 Headache, unspecified; R45.4 Irritability and anger
CPT/HCPCS: 99214